=== PATIENT | female | born 1945 | race Caucasian/White ===

== ENCOUNTER 2019-09-01 10:01 | Inpatient (IN) ==
[2019-09-01 10:34] LABS: Basophils % 0.4 % (0.0-0.8); Eosinophils % 0.5 % (0.00-10.9); Hematocrit 31.8 VOL% (35.7-47.0); Hemoglobin 9.6 GM/DL (12.0-16.0); Immature Granulocytes % 0.6 %; Immature Granulocytes Absolute 0.05 #; Lymphocytes # 1.1 10*3/uL (1.4-4.0); Lymphocytes % 12.6 % (21.3-54.2); Mean Corpuscular HGB Conc 30.2 GM/DL (32-36); Mean Corpuscular Volume 75.4 FL (87-102); Mean Platelet Volume 9.1 FL (9.6-12.0); Monocytes % 4.6 % (1.7-12.7); Neutrophils % 81.3 % (38.7-73.9); Platelet Count 256 T/CUMM (130-400); Red Blood Count 4.22 MC/CUMM (3.8-5.5); Red Cell Distribution Width 20.1 % (9.3-17.3); White Blood Count 8.5 T/CUMM (4-12)
[2019-09-01] MEDS: ALBUTEROL 2.5 MG/3 ML NEB RESP TX SCH ×3 (10:49→11:29)
[2019-09-01 11:00] LABS: Alanine Aminotransferase 19 U/L (13-56); Albumin 3.5 G/DL (3.4-5.0); Alkaline Phosphatase 88 U/L (45-117); Aspartate Amino Transferase 32 U/L (0-37); Bilirubin,Total < 0.39 MG/DL (0.2-1.0); Blood Urea Nitrogen 9 MG/DL (7-18); Calcium 8.9 MG/DL (8.5-10.1); Estimated Glom Filtration Rate 67 ML/MIN; Glucose 206 MG/DL (74-106); Osmolality,Calculated 270.4 MOS/KG (273-304); Total Protein 7.2 G/DL (6.4-8.3)
[2019-09-01] MEDS ORDERED: GLUCAGON 1 MG VIAL IM PRN (13:06)
[2019-09-01] MEDS ORDERED: ACETAMINOPHEN 325 MG TABLET PO PRN (13:06)
[2019-09-01] MEDS ORDERED: DEXTROSE 50% 25 GM/50 ML VIAL IV PRN (13:06)
[2019-09-01] MEDS ORDERED: ONDANSETRON 4 MG/2 ML VIAL IV PRN (13:06)
[2019-09-01] MEDS ORDERED: BACLOFEN 10 MG TABLET PO PRN (13:09)
[2019-09-01] MEDS ORDERED: PROCHLORPERAZINE 10 MG TABLET PO PRN (13:09)
[2019-09-01] MEDS: ALBUTEROL/IPRATROPIUM 3 ML NEB RESP TX SCH ×2 (16:15→20:30)
[2019-09-01] MEDS: PANTOPRAZOLE 40 MG TABLET PO SCH (21:35)
[2019-09-01] MEDS: CITALOPRAM 20 MG TABLET PO SCH (21:35)
[2019-09-01] MEDS: SIMVASTATIN 20 MG TABLET PO SCH (21:35)
[2019-09-01] MEDS: ENOXAPARIN 40 MG/0.4 ML SYRINGE SUBCUT SCH (21:35)
[2019-09-01] MEDS: PREGABALIN 75 MG CAPSULE PO SCH (21:35)
[2019-09-01] MEDS: THEOPHYLLINE ER (24 HR) 300 MG CAPSULE PO SCH (21:35)
[2019-09-01] MEDS: FLUTICASONE/SALMETEROL 250-50 DISKUS 14 DOSE INH SCH (21:36)
[2019-09-01] MEDS: PRAMIPEXOLE 0.25 MG TABLET PO SCH (21:53)
[2019-09-01] MEDS: MORPHINE ER 30 MG TABLET PO SCH (21:53)
[2019-09-02] MEDS: ALBUTEROL/IPRATROPIUM 3 ML NEB RESP TX SCH ×6 (03:52→19:40)
[2019-09-02 05:06] LABS: Basophils % 0.4 % (0.0-0.8); Eosinophils # 0.1 10*3/uL (0.0-0.87); Eosinophils % 0.9 % (0.00-10.9); Hemoglobin 9.1 GM/DL (12.0-16.0); Immature Granulocytes % 0.3 %; Immature Granulocytes Absolute 0.02 #; Lymphocytes # 1.8 10*3/uL (1.4-4.0); Lymphocytes % 22.4 % (21.3-54.2); Mean Corpuscular HGB Conc 30.3 GM/DL (32-36); Mean Corpuscular Volume 74.4 FL (87-102); Mean Platelet Volume 8.5 FL (9.6-12.0); Monocytes % 9.9 % (1.7-12.7); Neutrophils % 66.1 % (38.7-73.9); Platelet Count 233 T/CUMM (130-400); Red Blood Count 4.03 MC/CUMM (3.8-5.5); Red Cell Distribution Width 20.4 % (9.3-17.3); White Blood Count 7.9 T/CUMM (4-12)
[2019-09-02 05:29] LABS: Calcium 9.2 MG/DL (8.5-10.1)
[2019-09-02] MEDS: LINACLOTIDE 145 MCG CAPSULE PO SCH (09:53)
[2019-09-02] MEDS: CITALOPRAM 20 MG TABLET PO SCH ×2 (09:53→21:15)
[2019-09-02] MEDS: PREGABALIN 75 MG CAPSULE PO SCH ×2 (09:53→21:15)
[2019-09-02] MEDS: CLOPIDOGREL 75 MG TABLET PO SCH (09:53)
[2019-09-02] MEDS: THEOPHYLLINE ER (24 HR) 300 MG CAPSULE PO SCH ×2 (09:53→21:15)
[2019-09-02] MEDS: PANTOPRAZOLE 40 MG TABLET PO SCH ×2 (09:53→21:15)
[2019-09-02] MEDS: MORPHINE ER 30 MG TABLET PO SCH ×2 (09:54→21:14)
[2019-09-02] MEDS: LIDOCAINE 5% PATCH TRANSDERM SCH (09:54)
[2019-09-02] MEDS: FLUTICASONE 50 MCG NASAL SPRAY 16 GM BOTTLE BOTH NARES SCH ×2 (09:55→10:20)
[2019-09-02] MEDS: FLUTICASONE/SALMETEROL 250-50 DISKUS 14 DOSE INH SCH ×2 (09:55→21:15)
[2019-09-02] MEDS: oxyCODONE/ACETAMINOPHEN 5-325 MG TABLET PO PRN ×3 (11:18→23:06)
[2019-09-02] MEDS: PRAMIPEXOLE 0.25 MG TABLET PO SCH (21:14)
[2019-09-02] MEDS: SIMVASTATIN 20 MG TABLET PO SCH (21:14)
[2019-09-02] MEDS: ENOXAPARIN 40 MG/0.4 ML SYRINGE SUBCUT SCH (21:16)
[2019-09-03] MEDS: ALBUTEROL/IPRATROPIUM 3 ML NEB RESP TX SCH ×4 (03:14→19:49)
[2019-09-03 04:32] LABS: Basophils # 0.1 10*3/uL (0.0-0.2); Basophils % 0.6 % (0.0-0.8); Eosinophils # 0.1 10*3/uL (0.0-0.87); Hemoglobin 9.3 GM/DL (12.0-16.0); Immature Granulocytes % 0.4 %; Immature Granulocytes Absolute 0.04 #; Lymphocytes % 22.1 % (21.3-54.2); Mean Corpuscular Volume 76.2 FL (87-102); Mean Platelet Volume 8.4 FL (9.6-12.0); Monocytes % 9.7 % (1.7-12.7); Neutrophils % 66.2 % (38.7-73.9); Platelet Count 254 T/CUMM (130-400); Red Blood Count 4.07 MC/CUMM (3.8-5.5); Red Cell Distribution Width 20.3 % (9.3-17.3)
[2019-09-03 04:54] LABS: Osmolality,Calculated 267.1 MOS/KG (273-304)
[2019-09-03] MEDS: PANTOPRAZOLE 40 MG TABLET PO SCH ×2 (09:22→20:24)
[2019-09-03] MEDS: CLOPIDOGREL 75 MG TABLET PO SCH (09:22)
[2019-09-03] MEDS: PREGABALIN 75 MG CAPSULE PO SCH ×2 (09:23→20:23)
[2019-09-03] MEDS: THEOPHYLLINE ER (24 HR) 300 MG CAPSULE PO SCH ×2 (09:23→20:24)
[2019-09-03] MEDS: MORPHINE ER 30 MG TABLET PO SCH ×2 (09:23→20:23)
[2019-09-03] MEDS: CITALOPRAM 20 MG TABLET PO SCH ×2 (09:23→20:24)
[2019-09-03] MEDS: FLUTICASONE 50 MCG NASAL SPRAY 16 GM BOTTLE BOTH NARES SCH (09:23)
[2019-09-03] MEDS: LINACLOTIDE 145 MCG CAPSULE PO SCH (09:24)
[2019-09-03] MEDS: FLUTICASONE/SALMETEROL 250-50 DISKUS 14 DOSE INH SCH ×2 (09:24→20:24)
[2019-09-03] MEDS: oxyCODONE/ACETAMINOPHEN 5-325 MG TABLET PO PRN ×2 (11:36→17:41)
[2019-09-03] MEDS: LIDOCAINE 5% PATCH TRANSDERM SCH (11:36)
[2019-09-03] MEDS ORDERED: ALPRAZolam 0.25 MG TABLET PO PRN (13:58)
[2019-09-03] MEDS: methylPREDNISolone SOD SUC 40 MG/1 ML VIAL IV SCH (14:35)
[2019-09-03] MEDS: ENOXAPARIN 40 MG/0.4 ML SYRINGE SUBCUT SCH (20:23)
[2019-09-03] MEDS: SIMVASTATIN 20 MG TABLET PO SCH (20:24)
[2019-09-03] MEDS: PRAMIPEXOLE 0.25 MG TABLET PO SCH (20:24)
[2019-09-04] MEDS: ALBUTEROL/IPRATROPIUM 3 ML NEB RESP TX SCH ×4 (00:55→19:54)
[2019-09-04] MEDS: methylPREDNISolone SOD SUC 40 MG/1 ML VIAL IV SCH ×3 (01:53→23:56)
[2019-09-04] MEDS: oxyCODONE/ACETAMINOPHEN 5-325 MG TABLET PO PRN ×3 (01:57→23:56)
[2019-09-04 05:08] LABS: Basophils % 0.1 % (0.0-0.8); Hemoglobin 8.7 GM/DL (12.0-16.0); Immature Granulocytes % 0.6 %; Immature Granulocytes Absolute 0.04 #; Lymphocytes # 0.5 10*3/uL (1.4-4.0); Lymphocytes % 7.4 % (21.3-54.2); Mean Corpuscular HGB Conc 31.1 GM/DL (32-36); Mean Corpuscular Volume 73.3 FL (87-102); Mean Platelet Volume 8.9 FL (9.6-12.0); Monocytes % 1.8 % (1.7-12.7); Neutrophils % 90.1 % (38.7-73.9); Platelet Count 231 T/CUMM (130-400); Red Blood Count 3.82 MC/CUMM (3.8-5.5); Red Cell Distribution Width 19.9 % (9.3-17.3); White Blood Count 6.8 T/CUMM (4-12)
[2019-09-04 05:21] LABS: Calcium 9.1 MG/DL (8.5-10.1); Osmolality,Calculated 270.2 MOS/KG (273-304)
[2019-09-04] MEDS: MORPHINE ER 30 MG TABLET PO SCH ×2 (08:48→20:16)
[2019-09-04] MEDS: PREGABALIN 75 MG CAPSULE PO SCH ×2 (08:48→20:16)
[2019-09-04] MEDS: THEOPHYLLINE ER (24 HR) 300 MG CAPSULE PO SCH ×2 (08:48→20:16)
[2019-09-04] MEDS: CLOPIDOGREL 75 MG TABLET PO SCH (08:48)
[2019-09-04] MEDS: CITALOPRAM 20 MG TABLET PO SCH (08:48)
[2019-09-04] MEDS: FLUTICASONE/SALMETEROL 250-50 DISKUS 14 DOSE INH SCH ×2 (08:49→20:16)
[2019-09-04] MEDS: FLUTICASONE 50 MCG NASAL SPRAY 16 GM BOTTLE BOTH NARES SCH (08:49)
[2019-09-04] MEDS: PANTOPRAZOLE 40 MG TABLET PO SCH ×2 (08:50→20:16)
[2019-09-04] MEDS: LIDOCAINE 5% PATCH TRANSDERM SCH (08:51)
[2019-09-04] MEDS: ALPRAZolam 0.25 MG TABLET PO SCH ×3 (11:39→20:16)
[2019-09-04] MEDS: LINACLOTIDE 145 MCG CAPSULE PO SCH (12:42)
[2019-09-04] MEDS ORDERED: LEVOFLOXACIN INJ 500 MG in PREMIX 1 EACH IV SCH (16:00)
[2019-09-04] MEDS: BUDESONIDE 0.5 MG/2 ML NEB RESP TX SCH (19:54)
[2019-09-04] MEDS: PRAMIPEXOLE 0.25 MG TABLET PO SCH (20:16)
[2019-09-04] MEDS: SIMVASTATIN 20 MG TABLET PO SCH (20:16)
[2019-09-04] MEDS: ENOXAPARIN 40 MG/0.4 ML SYRINGE SUBCUT SCH (20:16)
[2019-09-05] MEDS: ALBUTEROL/IPRATROPIUM 3 ML NEB RESP TX SCH ×2 (01:00→07:24)
[2019-09-05 05:56] LABS: Basophils % 0.1 % (0.0-0.8); Hematocrit 29.1 VOL% (35.7-47.0); Hemoglobin 8.7 GM/DL (12.0-16.0); Immature Granulocytes % 0.8 %; Immature Granulocytes Absolute 0.06 #; Lymphocytes # 0.6 10*3/uL (1.4-4.0); Lymphocytes % 7.4 % (21.3-54.2); Mean Corpuscular HGB Conc 29.9 GM/DL (32-36); Mean Corpuscular Volume 76.2 FL (87-102); Mean Platelet Volume 8.8 FL (9.6-12.0); Monocytes % 2.1 % (1.7-12.7); Neutrophils % 89.6 % (38.7-73.9); Platelet Count 255 T/CUMM (130-400); Red Blood Count 3.82 MC/CUMM (3.8-5.5); White Blood Count 7.8 T/CUMM (4-12)
[2019-09-05 06:07] LABS: Alanine Aminotransferase 27 U/L (13-56); Albumin 3.3 G/DL (3.4-5.0); Alkaline Phosphatase 80 U/L (45-117); Aspartate Amino Transferase 42 U/L (0-37); Bilirubin,Total < 0.39 MG/DL (0.2-1.0); Blood Urea Nitrogen 16 MG/DL (7-18); Calcium 9.3 MG/DL (8.5-10.1); Estimated Glom Filtration Rate 59 ML/MIN; Glucose 133 MG/DL (74-106); Osmolality,Calculated 272.1 MOS/KG (273-304); Total Protein 7.2 G/DL (6.4-8.3)
[2019-09-05] MEDS: BUDESONIDE 0.5 MG/2 ML NEB RESP TX SCH (07:25)
[2019-09-05] MEDS ORDERED: ALBUTEROL/IPRATROPIUM 3 ML NEB RESP TX ONE (09:03)
[2019-09-05] MEDS: PREGABALIN 75 MG CAPSULE PO SCH (09:05)
[2019-09-05] MEDS: CLOPIDOGREL 75 MG TABLET PO SCH (09:06)
[2019-09-05] MEDS: PANTOPRAZOLE 40 MG TABLET PO SCH (09:06)
[2019-09-05] MEDS: THEOPHYLLINE ER (24 HR) 300 MG CAPSULE PO SCH (09:06)
[2019-09-05] MEDS: MORPHINE ER 30 MG TABLET PO SCH (09:06)
[2019-09-05] MEDS: methylPREDNISolone SOD SUC 40 MG/1 ML VIAL IV SCH (09:07)
[2019-09-05] MEDS: LINACLOTIDE 145 MCG CAPSULE PO SCH (09:07)
[2019-09-05] MEDS: LIDOCAINE 5% PATCH TRANSDERM SCH (09:08)
[2019-09-05] MEDS: ALPRAZolam 0.25 MG TABLET PO SCH (09:08)
[2019-09-05] MEDS: FLUTICASONE 50 MCG NASAL SPRAY 16 GM BOTTLE BOTH NARES SCH (09:09)
[2019-09-05] MEDS: FLUTICASONE/SALMETEROL 250-50 DISKUS 14 DOSE INH SCH (09:09)
[2019-09-05 10:11] VITALS: BP 170/77
== END 2019-09-05 12:10 | disposition home health service (06) | DRG 191 ==
LOC: EDBD → EDUNIT# → N.ED 10:01 → N.EDINP 10:01 → SUATTDRO 13:06 → N.TELEN 14:29
PROVIDERS: ADMIT Internal Medicine Geriatric Medicine; ATTEND Internal Medicine

== ENCOUNTER 2019-10-16 16:36 | Inpatient (IN) ==
[2019-10-16] MEDS ORDERED: methylPREDNISolone SOD SUC 125 MG/2 ML VIAL IV STA (17:09)
[2019-10-16] MEDS ORDERED: ALBUTEROL/IPRATROPIUM 3 ML NEB RESP TX STA (17:09)
[2019-10-16 17:38] LABS: Basophils % 0.3 % (0.0-0.8); Eosinophils % 0.3 % (0.00-10.9); Hematocrit 33.6 VOL% (35.7-47.0); Hemoglobin 10.6 GM/DL (12.0-16.0); Immature Granulocytes % 0.2 %; Immature Granulocytes Absolute 0.03 #; Lymphocytes # 1.5 10*3/uL (1.4-4.0); Lymphocytes % 12.1 % (21.3-54.2); Mean Corpuscular HGB Conc 31.5 GM/DL (32-36); Mean Platelet Volume 8.6 FL (9.6-12.0); Monocytes % 8.1 % (1.7-12.7); Platelet Count 298 T/CUMM (130-400); Red Blood Count 4.48 MC/CUMM (3.8-5.5); Red Cell Distribution Width 18.4 % (9.3-17.3); White Blood Count 12.3 T/CUMM (4-12)
[2019-10-16 17:57] LABS: Albumin 3.2 G/DL (3.4-5.0); Bilirubin,Total 0.4 MG/DL (0.2-1.0); Calcium 9.8 MG/DL (8.5-10.1); Total Protein 7.9 G/DL (6.4-8.3)
[2019-10-16] MEDS ORDERED: LEVOFLOXACIN 750 MG TABLET PO STA (18:15)
[2019-10-16] MEDS ORDERED: GLUCAGON 1 MG VIAL IM PRN (19:08)
[2019-10-16] MEDS ORDERED: DEXTROSE 10% 250 ML BAG IV PRN (19:08)
[2019-10-16] MEDS: oxyCODONE/ACETAMINOPHEN 5-325 MG TABLET PO SCH (22:13)
[2019-10-16] MEDS: PREGABALIN 75 MG CAPSULE PO SCH (22:13)
[2019-10-16] MEDS: THEOPHYLLINE ER (24 HR) 300 MG CAPSULE PO SCH (22:15)
[2019-10-16] MEDS: SIMVASTATIN 20 MG TABLET PO SCH (22:15)
[2019-10-16] MEDS: PANTOPRAZOLE 40 MG TABLET PO SCH (22:15)
[2019-10-16] MEDS: MORPHINE ER 30 MG TABLET PO SCH (22:15)
[2019-10-16] MEDS: CITALOPRAM 20 MG TABLET PO SCH (22:16)
[2019-10-16] MEDS: ENOXAPARIN 40 MG/0.4 ML SYRINGE SUBCUT SCH (22:20)
[2019-10-16] MEDS: PRAMIPEXOLE 0.25 MG TABLET PO SCH (22:20)
[2019-10-16] MEDS: ALBUTEROL/IPRATROPIUM 3 ML NEB RESP TX PRN (22:30)
[2019-10-17] MEDS: ALBUTEROL/IPRATROPIUM 3 ML NEB RESP TX PRN ×2 (06:20→19:28)
[2019-10-17 06:32] LABS: Basophils % 0.3 % (0.0-0.8); Hematocrit 33.9 VOL% (35.7-47.0); Hemoglobin 10.6 GM/DL (12.0-16.0); Immature Granulocytes % 0.4 %; Immature Granulocytes Absolute 0.04 #; Lymphocytes # 1.2 10*3/uL (1.4-4.0); Lymphocytes % 11.2 % (21.3-54.2); Mean Corpuscular HGB Conc 31.3 GM/DL (32-36); Mean Corpuscular Volume 74.7 FL (87-102); Mean Platelet Volume 8.7 FL (9.6-12.0); Monocytes % 2.5 % (1.7-12.7); Neutrophils % 85.6 % (38.7-73.9); Platelet Count 308 T/CUMM (130-400); Red Blood Count 4.54 MC/CUMM (3.8-5.5); Red Cell Distribution Width 18.3 % (9.3-17.3); White Blood Count 10.3 T/CUMM (4-12)
[2019-10-17 06:55] LABS: Calcium 9.3 MG/DL (8.5-10.1)
[2019-10-17] MEDS: CLOPIDOGREL 75 MG TABLET PO SCH (08:19)
[2019-10-17] MEDS: MORPHINE ER 30 MG TABLET PO SCH ×2 (08:19→21:36)
[2019-10-17] MEDS: THEOPHYLLINE ER (24 HR) 300 MG CAPSULE PO SCH ×2 (08:19→21:35)
[2019-10-17] MEDS: PREGABALIN 75 MG CAPSULE PO SCH ×2 (08:19→21:35)
[2019-10-17] MEDS: PANTOPRAZOLE 40 MG TABLET PO SCH ×2 (08:19→21:36)
[2019-10-17] MEDS: LIDOCAINE 5% PATCH TRANSDERM SCH (08:20)
[2019-10-17] MEDS: CITALOPRAM 20 MG TABLET PO SCH ×2 (08:20→21:36)
[2019-10-17] MEDS: LINACLOTIDE 145 MCG CAPSULE PO SCH (08:20)
[2019-10-17] MEDS: oxyCODONE/ACETAMINOPHEN 5-325 MG TABLET PO SCH ×3 (08:20→21:35)
[2019-10-17] MEDS: methylPREDNISolone SOD SUC 40 MG/1 ML VIAL IV SCH ×2 (08:20→21:36)
[2019-10-17 15:03] LABS: Basophils % 0.2 % (0.0-0.8); Hematocrit 35.7 VOL% (35.7-47.0); Hemoglobin 10.8 GM/DL (12.0-16.0); Immature Granulocytes % 0.8 %; Lymphocytes # 0.8 10*3/uL (1.4-4.0); Lymphocytes % 6.3 % (21.3-54.2); Mean Corpuscular HGB Conc 30.3 GM/DL (32-36); Mean Corpuscular Volume 77.9 FL (87-102); Mean Platelet Volume 8.5 FL (9.6-12.0); Monocytes % 2.2 % (1.7-12.7); Neutrophils % 90.5 % (38.7-73.9); Platelet Count 326 T/CUMM (130-400); Red Blood Count 4.58 MC/CUMM (3.8-5.5); Red Cell Distribution Width 18.4 % (9.3-17.3); White Blood Count 12.9 T/CUMM (4-12)
[2019-10-17 15:24] LABS: Calcium 9.5 MG/DL (8.5-10.1); Osmolality,Calculated 277.1 MOS/KG (273-304)
[2019-10-17] MEDS: LEVOFLOXACIN INJ 500 MG in PREMIX 1 EACH IV SCH (18:37)
[2019-10-17] MEDS: ARFORMOTEROL 15 MCG/2 ML NEB RESP TX SCH (19:28)
[2019-10-17] MEDS: PRAMIPEXOLE 0.25 MG TABLET PO SCH (21:35)
[2019-10-17] MEDS: ENOXAPARIN 40 MG/0.4 ML SYRINGE SUBCUT SCH (21:36)
[2019-10-17] MEDS: SIMVASTATIN 20 MG TABLET PO SCH (21:36)
[2019-10-18] MEDS: ARFORMOTEROL 15 MCG/2 ML NEB RESP TX SCH ×2 (07:24→19:37)
[2019-10-18] MEDS ORDERED: MIDAZOLAM 10 MG/2 ML VIAL ONE (07:37)
[2019-10-18] MEDS ORDERED: PROMETHAZINE 25 MG/1 ML VIAL IM ONE (08:00)
[2019-10-18] MEDS ORDERED: MEPERIDINE 50 MG/1 ML VIAL IM ONE (08:00)
[2019-10-18] MEDS ORDERED: LIDOCAINE 1% 20 ML VIAL MISC INJ ONE (08:30)
[2019-10-18] MEDS ORDERED: LIDOCAINE 2% VISCOUS 100 ML BOTTLE SWISH/SPIT ONE (08:30)
[2019-10-18] MEDS ORDERED: LIDOCAINE 2% 20 ML VIAL RESP TX ONE (08:30)
[2019-10-18] MEDS ORDERED: MIDAZOLAM 2 MG/2 ML VIAL IV ONE (08:30)
[2019-10-18] MEDS: MORPHINE ER 30 MG TABLET PO SCH ×2 (10:55→21:10)
[2019-10-18] MEDS: THEOPHYLLINE ER (24 HR) 300 MG CAPSULE PO SCH ×2 (10:55→21:10)
[2019-10-18] MEDS: methylPREDNISolone SOD SUC 40 MG/1 ML VIAL IV SCH ×2 (10:55→21:11)
[2019-10-18] MEDS: oxyCODONE/ACETAMINOPHEN 5-325 MG TABLET PO SCH ×3 (10:55→21:10)
[2019-10-18] MEDS: PANTOPRAZOLE 40 MG TABLET PO SCH ×2 (10:55→21:10)
[2019-10-18] MEDS: LIDOCAINE 5% PATCH TRANSDERM SCH ×2 (10:56→19:13)
[2019-10-18] MEDS: PREGABALIN 75 MG CAPSULE PO SCH ×2 (10:56→21:10)
[2019-10-18] MEDS: CITALOPRAM 20 MG TABLET PO SCH ×2 (10:56→21:10)
[2019-10-18] MEDS: CLOPIDOGREL 75 MG TABLET PO SCH (10:56)
[2019-10-18] MEDS: LINACLOTIDE 145 MCG CAPSULE PO SCH (10:56)
[2019-10-18] MEDS: ALBUTEROL/IPRATROPIUM 3 ML NEB RESP TX PRN (17:17)
[2019-10-18] MEDS: LEVOFLOXACIN INJ 500 MG in PREMIX 1 EACH IV SCH (18:40)
[2019-10-18] MEDS: SIMVASTATIN 20 MG TABLET PO SCH (21:11)
[2019-10-18] MEDS: ENOXAPARIN 40 MG/0.4 ML SYRINGE SUBCUT SCH (21:11)
[2019-10-18] MEDS: PRAMIPEXOLE 0.25 MG TABLET PO SCH (21:18)
[2019-10-19] MEDS: oxyCODONE IR 5 MG TABLET PO PRN ×2 (03:44→08:00)
[2019-10-19 05:31] LABS: Basophils % 0.1 % (0.0-0.8); Hemoglobin 9.7 GM/DL (12.0-16.0); Immature Granulocytes % 0.9 %; Immature Granulocytes Absolute 0.11 #; Lymphocytes % 7.7 % (21.3-54.2); Mean Corpuscular HGB Conc 30.3 GM/DL (32-36); Mean Corpuscular Volume 77.1 FL (87-102); Mean Platelet Volume 8.8 FL (9.6-12.0); Monocytes % 3.4 % (1.7-12.7); Neutrophils % 87.9 % (38.7-73.9); Platelet Count 262 T/CUMM (130-400); Red Blood Count 4.15 MC/CUMM (3.8-5.5); Red Cell Distribution Width 18.1 % (9.3-17.3); White Blood Count 12.8 T/CUMM (4-12)
[2019-10-19 05:56] LABS: Calcium 9.2 MG/DL (8.5-10.1); Osmolality,Calculated 271.4 MOS/KG (273-304)
[2019-10-19] MEDS: ARFORMOTEROL 15 MCG/2 ML NEB RESP TX SCH (07:29)
[2019-10-19] MEDS: CLOPIDOGREL 75 MG TABLET PO SCH (09:26)
[2019-10-19] MEDS: LINACLOTIDE 145 MCG CAPSULE PO SCH (09:26)
[2019-10-19] MEDS: MORPHINE ER 30 MG TABLET PO SCH (09:27)
[2019-10-19] MEDS: methylPREDNISolone SOD SUC 40 MG/1 ML VIAL IV SCH (09:27)
[2019-10-19] MEDS: PREGABALIN 75 MG CAPSULE PO SCH (09:27)
[2019-10-19] MEDS: CITALOPRAM 20 MG TABLET PO SCH (09:27)
[2019-10-19] MEDS: THEOPHYLLINE ER (24 HR) 300 MG CAPSULE PO SCH (09:27)
[2019-10-19] MEDS: oxyCODONE/ACETAMINOPHEN 5-325 MG TABLET PO SCH (09:27)
[2019-10-19] MEDS: PANTOPRAZOLE 40 MG TABLET PO SCH (09:36)
[2019-10-19] MEDS: LIDOCAINE 5% PATCH TRANSDERM SCH (09:36)
[2019-10-19 12:20] VITALS: BP 155/89
== END 2019-10-19 14:07 | disposition home or self-care (01) | DRG 178 ==
LOC: EDBD → EDUNIT# → N.ED 16:36 → N.EDINP 19:08 → N.TELEN 19:53
PROVIDERS: ADMIT Internal Medicine; ATTEND Internal Medicine

== ENCOUNTER 2020-04-09 10:34 | Inpatient (IN) ==
[2020-04-09] MEDS ORDERED: methylPREDNISolone SOD SUC 125 MG/2 ML VIAL IV STA (10:36)
[2020-04-09] MEDS ORDERED: LORazepam 2 MG/1 ML VIAL ONE (10:45)
[2020-04-09] MEDS ORDERED: LORazepam 2 MG/1 ML VIAL IV STA (10:46)
[2020-04-09] MEDS ORDERED: ALBUTEROL NEB SOLN 5 MG/ML 20 ML/BOTTLE CONT NEB SCH (11:00)
[2020-04-09 11:20] LABS: Basophils # 0.1 10*3/uL (0.0-0.2); Basophils % 0.6 % (0.0-0.8); Eosinophils # 0.1 10*3/uL (0.0-0.87); Eosinophils % 0.8 % (0.00-10.9); Hematocrit 33.2 VOL% (35.7-47.0); Hemoglobin 10.1 GM/DL (12.0-16.0); Immature Granulocytes % 0.6 %; Immature Granulocytes Absolute 0.06 #; Lymphocytes # 2.3 10*3/uL (1.4-4.0); Lymphocytes % 20.9 % (21.3-54.2); Mean Corpuscular HGB Conc 30.4 GM/DL (32-36); Mean Platelet Volume 8.8 FL (9.6-12.0); Monocytes % 8.1 % (1.7-12.7); Platelet Count 357 T/CUMM (130-400); Red Blood Count 4.74 MC/CUMM (3.8-5.5); Red Cell Distribution Width 19.1 % (9.3-17.3); White Blood Count 10.8 T/CUMM (4-12)
[2020-04-09 11:31] LABS: ABG Base Excess 2.8 MMOL/L (-2.5-2.5); ABG HCO3 29.8 MMOL/L (20-26); ABG Oxygen Saturation 98.7 % (95-100); ABG PCO2 58.8 MM HG (35-48); ABG PH 7.322 (7.35-7.45); ABG PO2 151.7 MM HG (80-95); ABG TCO2 31.6 MMOL/L (23-27)
[2020-04-09 11:32] LABS: Alanine Aminotransferase < 9 U/L (13-56); Albumin 3.2 G/DL (3.4-5.0); Alkaline Phosphatase 116 U/L (45-117); Aspartate Amino Transferase 15 U/L (0-37); Bilirubin,Total < 0.39 MG/DL (0.2-1.0); Blood Urea Nitrogen 11 MG/DL (7-18); Calcium 8.9 MG/DL (8.5-10.1); Estimated Glom Filtration Rate 68 ML/MIN; Glucose 110 MG/DL (74-106); Osmolality,Calculated 272.8 MOS/KG (273-304); Total Protein 7.4 G/DL (6.4-8.3)
[2020-04-09] MEDS ORDERED: ALBUTEROL 2.5 MG/3 ML NEB RESP TX PRN (13:00)
[2020-04-09] MEDS ORDERED: ONDANSETRON 4 MG/2 ML VIAL IV PRN (13:00)
[2020-04-09] MEDS ORDERED: PANTOPRAZOLE 40 MG TABLET PO SCH (13:30)
[2020-04-09 14:33] LABS: ABG Base Excess 5.8 MMOL/L (-2.5-2.5); ABG HCO3 29.4 MMOL/L (20-26); ABG Oxygen Saturation 81.4 % (95-100); ABG PO2 51.4 MM HG (80-95); ABG TCO2 30.8 MMOL/L (23-27)
[2020-04-09] MEDS ORDERED: ETOMIDATE 20 MG/10 ML VIAL IV ONE (16:00)
[2020-04-09] MEDS ORDERED: ROCURONIUM 100 MG/10 ML VIAL IV ONE (16:01)
[2020-04-09] MEDS ORDERED: methylPREDNISolone SOD SUC 125 MG/2 ML VIAL IV SCH (16:30)
[2020-04-09 17:48] LABS: ABG PCO2 57.2 MM HG (35-48); ABG PH 7.353 (7.35-7.45); ABG TCO2 29.3 MMOL/L (23-27); Allen Test Positive; Pt O2 Delivery Device Ventilator
[2020-04-09] MEDS: ENOXAPARIN 40 MG/0.4 ML SYRINGE SUBCUT SCH (18:32)
[2020-04-09] MEDS: AZITHROMYCIN INJ 500 MG in SODIUM CHLORIDE 0.9% 250 ML IV SCH (18:33)
[2020-04-09] MEDS: ALBUTEROL/IPRATROPIUM 3 ML NEB RESP TX SCH ×2 (19:16→23:35)
[2020-04-09] MEDS ORDERED: fentaNYL 100 MCG/2 ML VIAL IV ONE (19:54)
[2020-04-09] MEDS: fentaNYL INJ 1,250 MCG in SODIUM CHLORIDE 0.9% 225 ML IV PRN (20:25)
[2020-04-09] MEDS: methylPREDNISolone SOD SUC 125 MG/2 ML VIAL IV SCH (20:28)
[2020-04-10 03:42] LABS: Basophils % 0.1 % (0.0-0.8); Hematocrit 29.9 VOL% (35.7-47.0); Hemoglobin 9.2 GM/DL (12.0-16.0); Immature Granulocytes % 0.9 %; Immature Granulocytes Absolute 0.09 #; Lymphocytes # 0.5 10*3/uL (1.4-4.0); Lymphocytes % 4.8 % (21.3-54.2); Mean Corpuscular HGB Conc 30.8 GM/DL (32-36); Mean Corpuscular Volume 69.4 FL (87-102); Mean Platelet Volume 8.5 FL (9.6-12.0); Monocytes % 4.7 % (1.7-12.7); Neutrophils % 89.5 % (38.7-73.9); Platelet Count 255 T/CUMM (130-400); Red Blood Count 4.31 MC/CUMM (3.8-5.5); Red Cell Distribution Width 18.6 % (9.3-17.3); White Blood Count 9.6 T/CUMM (4-12)
[2020-04-10 04:08] LABS: Calcium 9.1 MG/DL (8.5-10.1); Osmolality,Calculated 275.8 MOS/KG (273-304)
[2020-04-10 04:25] LABS: ABG Base Excess 4.8 MMOL/L (-2.5-2.5); ABG HCO3 28.8 MMOL/L (20-26); ABG Oxygen Saturation 98.2 % (95-100); ABG PCO2 44.5 MM HG (35-48); ABG PH 7.432 (7.35-7.45); ABG TCO2 27.4 MMOL/L (23-27); Allen Test Positive; Pt O2 Delivery Device Ventilator
[2020-04-10] MEDS: ALBUTEROL/IPRATROPIUM 3 ML NEB RESP TX SCH ×6 (04:25→22:55)
[2020-04-10 04:26] LABS: Band Neutrophils 1 % (0-10); Hypochromasia 1+; Lymphocytes 5 % (20-55); Microcytosis 1+; Platelet Estimate Adequate; Segmented Neutrophils 92 % (50-85); Total Cells Counted 100
[2020-04-10] MEDS: PANTOPRAZOLE 40 MG VIAL IV SCH (08:07)
[2020-04-10] MEDS: methylPREDNISolone SOD SUC 125 MG/2 ML VIAL IV SCH ×2 (08:11→20:17)
[2020-04-10] MEDS: fentaNYL INJ 1,250 MCG in SODIUM CHLORIDE 0.9% 225 ML IV PRN ×2 (09:24→19:40)
[2020-04-10] MEDS ORDERED: LEVOFLOXACIN INJ 750 MG in PREMIX 1 EACH IV SCH (09:30)
[2020-04-10] MEDS: AZTREONAM 2,000 MG in SYRINGE 1 EACH IV SCH ×2 (11:22→17:33)
[2020-04-10] MEDS: INSULIN LISPRO 100 UNIT/ML SUBCUT SCH ×2 (17:16→23:49)
[2020-04-10] MEDS: ENOXAPARIN 40 MG/0.4 ML SYRINGE SUBCUT SCH (17:32)
[2020-04-10] MEDS: AZITHROMYCIN INJ 500 MG in SODIUM CHLORIDE 0.9% 250 ML IV SCH (17:32)
[2020-04-11] MEDS: AZTREONAM 2,000 MG in SYRINGE 1 EACH IV SCH ×3 (02:30→19:40)
[2020-04-11] MEDS: ALBUTEROL/IPRATROPIUM 3 ML NEB RESP TX SCH ×6 (03:00→23:28)
[2020-04-11 04:18] LABS: ABG Base Excess 5.6 MMOL/L (-2.5-2.5); ABG HCO3 29.5 MMOL/L (20-26); ABG Oxygen Saturation 96.1 % (95-100); ABG PCO2 53.8 MM HG (35-48); ABG PO2 87.8 MM HG (80-95); ABG TCO2 29.5 MMOL/L (23-27); Allen Test Positive; Pt O2 Delivery Device Ventilator
[2020-04-11 05:09] LABS: Basophils % 0.1 % (0.0-0.8); Hematocrit 24.5 VOL% (35.7-47.0); Hemoglobin 7.8 GM/DL (12.0-16.0); Immature Granulocytes % 0.6 %; Immature Granulocytes Absolute 0.08 #; Lymphocytes # 0.4 10*3/uL (1.4-4.0); Mean Corpuscular HGB Conc 31.8 GM/DL (32-36); Mean Corpuscular Volume 69.8 FL (87-102); Mean Platelet Volume 9.1 FL (9.6-12.0); Monocytes % 3.5 % (1.7-12.7); Neutrophils % 92.8 % (38.7-73.9); Platelet Count 242 T/CUMM (130-400); Red Blood Count 3.51 MC/CUMM (3.8-5.5); Red Cell Distribution Width 18.8 % (9.3-17.3); White Blood Count 12.8 T/CUMM (4-12)
[2020-04-11 05:29] LABS: Calcium 7.3 MG/DL (8.5-10.1); Osmolality,Calculated 274.2 MOS/KG (273-304)
[2020-04-11 05:35] LABS: Band Neutrophils 9 % (0-10); Lymphocytes 4 % (20-55); Segmented Neutrophils 86 % (50-85); Total Cells Counted 100
[2020-04-11 05:36] LABS: Platelet Estimate Normal; Tear Drop Cells Few
[2020-04-11 05:37] LABS: Target Cells Few
[2020-04-11 05:38] LABS: Hypochromasia 1+
[2020-04-11] MEDS: fentaNYL INJ 1,250 MCG in SODIUM CHLORIDE 0.9% 225 ML IV PRN (06:08)
[2020-04-11] MEDS: INSULIN LISPRO 100 UNIT/ML SUBCUT SCH ×3 (06:10→18:05)
[2020-04-11] MEDS: methylPREDNISolone SOD SUC 125 MG/2 ML VIAL IV SCH ×2 (09:40→20:29)
[2020-04-11] MEDS: PANTOPRAZOLE 40 MG VIAL IV SCH (09:42)
[2020-04-11] MEDS: ALUMINUM/MAGNES/SIMETH MAX STR 30 ML UDCUP PO PRN (15:59)
[2020-04-11] MEDS: ALPRAZolam 0.25 MG TABLET PO PRN (15:59)
[2020-04-11] MEDS: ENOXAPARIN 40 MG/0.4 ML SYRINGE SUBCUT SCH (17:34)
[2020-04-11] MEDS: AZITHROMYCIN INJ 500 MG in SODIUM CHLORIDE 0.9% 250 ML IV SCH (17:34)
[2020-04-11] MEDS: oxyCODONE/ACETAMINOPHEN 5-325 MG TABLET PO PRN (18:13)
[2020-04-11] MEDS: ZALEPLON 5 MG CAPSULE PO PRN (20:30)
[2020-04-11] MEDS ORDERED: PHENOL 1.4% THROAT SPRAY 177 ML BOTTLE PO PRN (21:44)
[2020-04-12] MEDS: ALUMINUM/MAGNES/SIMETH MAX STR 30 ML UDCUP PO PRN ×2 (00:20→08:49)
[2020-04-12] MEDS: AZTREONAM 2,000 MG in SYRINGE 1 EACH IV SCH ×3 (01:40→21:23)
[2020-04-12] MEDS: ALPRAZolam 0.25 MG TABLET PO PRN (02:13)
[2020-04-12] MEDS ORDERED: MORPHINE 4 MG/1 ML VIAL IV ONE (02:26)
[2020-04-12] MEDS: ALBUTEROL/IPRATROPIUM 3 ML NEB RESP TX SCH ×5 (03:24→19:57)
[2020-04-12 04:03] LABS: Basophils % 0.1 % (0.0-0.8); Hematocrit 29.4 VOL% (35.7-47.0); Hemoglobin 8.9 GM/DL (12.0-16.0); Immature Granulocytes % 0.8 %; Immature Granulocytes Absolute 0.11 #; Lymphocytes # 0.5 10*3/uL (1.4-4.0); Lymphocytes % 3.6 % (21.3-54.2); Mean Corpuscular HGB Conc 30.3 GM/DL (32-36); Mean Corpuscular Volume 68.9 FL (87-102); Mean Platelet Volume 8.6 FL (9.6-12.0); Monocytes % 1.7 % (1.7-12.7); Neutrophils % 93.8 % (38.7-73.9); Platelet Count 266 T/CUMM (130-400); Red Blood Count 4.27 MC/CUMM (3.8-5.5); Red Cell Distribution Width 18.9 % (9.3-17.3); White Blood Count 13.8 T/CUMM (4-12)
[2020-04-12 04:21] LABS: Calcium 8.9 MG/DL (8.5-10.1); Osmolality,Calculated 277.8 MOS/KG (273-304)
[2020-04-12 04:28] LABS: Hypochromasia Slight; Lymphocytes 3 % (20-55); Microcytosis 3+; Platelet Estimate Normal; Segmented Neutrophils 97 % (50-85); Total Cells Counted 100
[2020-04-12] MEDS: INSULIN LISPRO 100 UNIT/ML SUBCUT SCH ×4 (05:45→18:32)
[2020-04-12] MEDS: oxyCODONE/ACETAMINOPHEN 5-325 MG TABLET PO PRN ×4 (07:25→20:13)
[2020-04-12] MEDS: PANTOPRAZOLE 40 MG VIAL IV SCH (08:45)
[2020-04-12] MEDS: methylPREDNISolone SOD SUC 125 MG/2 ML VIAL IV SCH ×2 (08:47→20:15)
[2020-04-12] MEDS ORDERED: LACTULOSE 20 GM/30 ML UDCUP PO PRN (12:00)
[2020-04-12] MEDS ORDERED: LACTULOSE 20 GM/30 ML UDCUP PO SCH (14:00)
[2020-04-12] MEDS: ENOXAPARIN 40 MG/0.4 ML SYRINGE SUBCUT SCH (17:38)
[2020-04-12] MEDS: AZITHROMYCIN INJ 500 MG in SODIUM CHLORIDE 0.9% 250 ML IV SCH (20:19)
[2020-04-13] MEDS: ALBUTEROL/IPRATROPIUM 3 ML NEB RESP TX SCH ×6 (00:02→19:52)
[2020-04-13] MEDS: oxyCODONE/ACETAMINOPHEN 5-325 MG TABLET PO PRN ×5 (00:35→20:31)
[2020-04-13] MEDS: ZALEPLON 5 MG CAPSULE PO PRN ×2 (00:41→20:31)
[2020-04-13] MEDS: INSULIN LISPRO 100 UNIT/ML SUBCUT SCH ×4 (00:42→18:22)
[2020-04-13] MEDS: AZTREONAM 2,000 MG in SYRINGE 1 EACH IV SCH ×3 (03:25→17:54)
[2020-04-13 05:51] LABS: Basophils % 0.1 % (0.0-0.8); Hematocrit 29.5 VOL% (35.7-47.0); Hemoglobin 8.9 GM/DL (12.0-16.0); Immature Granulocytes % 0.7 %; Immature Granulocytes Absolute 0.06 #; Lymphocytes # 0.6 10*3/uL (1.4-4.0); Lymphocytes % 6.7 % (21.3-54.2); Mean Corpuscular HGB Conc 30.2 GM/DL (32-36); Mean Corpuscular Volume 68.6 FL (87-102); Mean Platelet Volume 8.8 FL (9.6-12.0); Neutrophils % 89.5 % (38.7-73.9); Platelet Count 264 T/CUMM (130-400); Red Cell Distribution Width 18.8 % (9.3-17.3); White Blood Count 8.4 T/CUMM (4-12)
[2020-04-13 06:15] LABS: Calcium 9.3 MG/DL (8.5-10.1); Osmolality,Calculated 277.8 MOS/KG (273-304)
[2020-04-13] MEDS: PANTOPRAZOLE 40 MG TABLET PO SCH (08:39)
[2020-04-13] MEDS: methylPREDNISolone SOD SUC 125 MG/2 ML VIAL IV SCH ×2 (08:43→20:32)
[2020-04-13] MEDS: ENOXAPARIN 40 MG/0.4 ML SYRINGE SUBCUT SCH (15:31)
[2020-04-13] MEDS: AZITHROMYCIN INJ 500 MG in SODIUM CHLORIDE 0.9% 250 ML IV SCH (20:35)
[2020-04-14] MEDS: oxyCODONE/ACETAMINOPHEN 5-325 MG TABLET PO PRN ×3 (00:47→09:27)
[2020-04-14] MEDS: ALBUTEROL/IPRATROPIUM 3 ML NEB RESP TX SCH ×4 (01:16→11:53)
[2020-04-14] MEDS: INSULIN LISPRO 100 UNIT/ML SUBCUT SCH ×3 (01:46→13:39)
[2020-04-14 03:49] LABS: Basophils % 0.1 % (0.0-0.8); Hematocrit 31.4 VOL% (35.7-47.0); Hemoglobin 9.5 GM/DL (12.0-16.0); Immature Granulocytes % 0.8 %; Immature Granulocytes Absolute 0.08 #; Lymphocytes # 0.5 10*3/uL (1.4-4.0); Lymphocytes % 4.9 % (21.3-54.2); Mean Corpuscular HGB Conc 30.3 GM/DL (32-36); Mean Corpuscular Volume 69.2 FL (87-102); Mean Platelet Volume 8.9 FL (9.6-12.0); Monocytes % 1.8 % (1.7-12.7); Neutrophils % 92.4 % (38.7-73.9); Platelet Count 301 T/CUMM (130-400); Red Blood Count 4.54 MC/CUMM (3.8-5.5); Red Cell Distribution Width 18.6 % (9.3-17.3)
[2020-04-14 04:02] LABS: Calcium 8.9 MG/DL (8.5-10.1); Osmolality,Calculated 281.5 MOS/KG (273-304)
[2020-04-14] MEDS: ALUMINUM/MAGNES/SIMETH MAX STR 30 ML UDCUP PO PRN ×2 (04:16→10:47)
[2020-04-14] MEDS: AZTREONAM 2,000 MG in SYRINGE 1 EACH IV SCH ×2 (04:16→10:47)
[2020-04-14 04:48] LABS: Hypochromasia 1+; Lymphocytes 3 % (20-55); Platelet Estimate Adequate; Segmented Neutrophils 95 % (50-85); Total Cells Counted 100
[2020-04-14 04:49] LABS: Microcytosis Slight
[2020-04-14] MEDS: PANTOPRAZOLE 40 MG TABLET PO SCH (08:25)
[2020-04-14] MEDS: methylPREDNISolone SOD SUC 125 MG/2 ML VIAL IV SCH (08:26)
[2020-04-14] MEDS ORDERED: oxyCODONE ER 20 MG TABLET PO SCH (09:00)
[2020-04-14] MEDS: HYDROmorphone 2 MG/1 ML VIAL IV PRN ×2 (12:07→15:09)
[2020-04-14 14:13] VITALS: BP 151/90
== END 2020-04-14 16:31 | disposition home health service (06) | DRG 208 ==
LOC: EDUNIT# → EDBD → N.ED 10:34 → SUATTDRO 12:59 → N.EDINP 12:59 → N.ICU 16:58 → N.4E 04-12 13:54
PROVIDERS: ADMIT Internal Medicine; ATTEND Internal Medicine

== ENCOUNTER 2020-07-21 17:44 | Inpatient (IN) ==
[2020-07-21] MEDS ORDERED: ONDANSETRON 4 MG/2 ML VIAL IV STA (18:19)
[2020-07-21] MEDS ORDERED: MORPHINE 4 MG/1 ML VIAL IV STA ×2 (18:19→20:32)
[2020-07-21 18:50] LABS: Basophils % 0.4 % (0.0-0.8); Eosinophils # 0.2 10*3/uL (0.0-0.87); Eosinophils % 1.8 % (0.00-10.9); Hematocrit 27.1 VOL% (35.7-47.0); Hemoglobin 8.3 GM/DL (12.0-16.0); Immature Granulocytes Absolute 0.08 #; Lymphocytes # 0.8 10*3/uL (1.4-4.0); Lymphocytes % 9.5 % (21.3-54.2); Mean Corpuscular HGB Conc 30.6 GM/DL (32-36); Mean Corpuscular Volume 70.6 FL (87-102); Monocytes % 9.4 % (1.7-12.7); Neutrophils % 77.9 % (38.7-73.9); Platelet Count 302 T/CUMM (130-400); Red Blood Count 3.84 MC/CUMM (3.8-5.5); Red Cell Distribution Width 18.6 % (9.3-17.3); White Blood Count 8.2 T/CUMM (4-12)
[2020-07-21 19:05] LABS: Alanine Aminotransferase 13 U/L (13-56); Albumin 2.3 G/DL (3.4-5.0); Alkaline Phosphatase 112 U/L (45-117); Aspartate Amino Transferase 13 U/L (0-37); Bilirubin,Total < 0.39 MG/DL (0.2-1.0); Blood Urea Nitrogen 8 MG/DL (7-18); Calcium 8.7 MG/DL (8.5-10.1); Carbon Dioxide 30 MMOL/L (21-32); Estimated Glom Filtration Rate 86 ML/MIN; Glucose 82 MG/DL (74-106); INR 1.1; Osmolality,Calculated 266.1 MOS/KG (273-304); PT Patient Result 12.1 SECS (9.8-11.9); Potassium 4.1 MMOL/L (3.5-5.1); Sodium 135 MMOL/L (136-145); Total Protein 6.6 G/DL (6.4-8.3)
[2020-07-21] MEDS ORDERED: GLUCAGON 1 MG VIAL IM PRN (19:21)
[2020-07-21] MEDS ORDERED: DEXTROSE 50% 25 GM/50 ML VIAL IV PRN (19:21)
[2020-07-21] MEDS ORDERED: MORPHINE 4 MG/1 ML VIAL IM ONE (20:30)
[2020-07-21] MEDS ORDERED: ORPHENADRINE 60 MG/2 ML VIAL IV PRN (22:12)
[2020-07-21] MEDS: HYDROmorphone 2 MG/1 ML VIAL IV PRN (22:43)
[2020-07-22] MEDS: ALBUTEROL/IPRATROPIUM 3 ML NEB RESP TX PRN ×2 (00:02→13:38)
[2020-07-22] MEDS: CITALOPRAM 20 MG TABLET PO SCH ×3 (01:47→21:07)
[2020-07-22] MEDS: ENOXAPARIN 40 MG/0.4 ML SYRINGE SUBCUT SCH ×2 (01:48→21:18)
[2020-07-22] MEDS: DOXEPIN 25 MG CAPSULE PO SCH ×2 (01:49→21:07)
[2020-07-22] MEDS: HYDROmorphone 2 MG/1 ML VIAL IV PRN ×3 (02:37→10:27)
[2020-07-22] MEDS: methylPREDNISolone SOD SUC 40 MG/1 ML VIAL IV SCH ×3 (02:42→18:45)
[2020-07-22 05:21] LABS: Basophils % 0.4 % (0.0-0.8); Eosinophils % 0.4 % (0.00-10.9); Hematocrit 29.3 VOL% (35.7-47.0); Hemoglobin 8.5 GM/DL (12.0-16.0); Immature Granulocytes % 0.6 %; Immature Granulocytes Absolute 0.06 #; Lymphocytes # 0.4 10*3/uL (1.4-4.0); Lymphocytes % 4.4 % (21.3-54.2); Mean Corpuscular Volume 72.3 FL (87-102); Mean Platelet Volume 7.9 FL (9.6-12.0); Monocytes % 2.3 % (1.7-12.7); Neutrophils % 91.9 % (38.7-73.9); Platelet Count 302 T/CUMM (130-400); Red Blood Count 4.05 MC/CUMM (3.8-5.5); Red Cell Distribution Width 18.6 % (9.3-17.3); White Blood Count 9.3 T/CUMM (4-12)
[2020-07-22 05:45] LABS: Hypochromasia 1+; Platelet Estimate Adequate
[2020-07-22 05:46] LABS: Microcytosis Slight
[2020-07-22 06:03] LABS: Osmolality,Calculated 264.2 MOS/KG (273-304); Potassium 4.7 MMOL/L (3.5-5.1); Risk Ratio 2.48; Thyroid Stimulating Hormone 37.9 uIU/ml (0.358-3.74); VLDL CHOLESTEROL 15.2 MG/DL
[2020-07-22] MEDS: PANTOPRAZOLE 40 MG TABLET PO SCH (10:06)
[2020-07-22] MEDS: CLOPIDOGREL 75 MG TABLET PO SCH (10:06)
[2020-07-22] MEDS ORDERED: ONDANSETRON 4 MG/2 ML VIAL IV PRN (11:15)
[2020-07-22] MEDS ORDERED: CLINDAMYCIN INJ 600 MG in PREMIX 1 EACH IV ONE (13:00)
[2020-07-22] MEDS ORDERED: fentaNYL 100 MCG/2 ML VIAL ONE ×3 (13:17→15:25)
[2020-07-22] MEDS ORDERED: ETOMIDATE 40 MG/20 ML VIAL IV ONE (13:18)
[2020-07-22] MEDS ORDERED: ROCURONIUM 50 MG/5 ML VIAL IV ONE (13:18)
[2020-07-22] MEDS ORDERED: LIDOCAINE 2% 5 ML VIAL ONE ×2 (13:18→13:29)
[2020-07-22] MEDS ORDERED: ALBUTEROL 2.5 MG/3 ML NEB RESP TX ONE (13:29)
[2020-07-22] MEDS ORDERED: ROPIVACAINE 0.5% 30 ML VIAL ONE (13:29)
[2020-07-22] MEDS ORDERED: DEXAMETHASONE 4 MG/1 ML VIAL ONE (13:29)
[2020-07-22] MEDS ORDERED: LACTATED RINGERS 1,000 ML IV SCH (14:00)
[2020-07-22] MEDS ORDERED: SEVOFLURANE 1 UNIT/15 MINUTE INH ONE ×5 (14:13→16:17)
[2020-07-22] MEDS ORDERED: ONDANSETRON 4 MG/2 ML VIAL ONE (14:13)
[2020-07-22] MEDS ORDERED: PHENYLEPHRINE 1 MG/10 ML SYRINGE IV ONE (14:13)
[2020-07-22] MEDS ORDERED: ACETAMINOPHEN 1,000 MG/100 ML VIAL IV ONE (14:31)
[2020-07-22] MEDS ORDERED: ESMOLOL 100 MG/10 ML VIAL IV ONE (14:40)
[2020-07-22] MEDS ORDERED: GLYCOPYRROLATE 0.4 MG/2 ML VIAL ONE (14:59)
[2020-07-22] MEDS ORDERED: NEOSTIGMINE 10 MG/10 ML VIAL ONE ×3 (14:59)
[2020-07-22] MEDS ORDERED: SODIUM CHLORIDE 0.9% 1,000 ML IV PRN ×2 (15:03→15:08)
[2020-07-22] MEDS ORDERED: SODIUM CHLORIDE 0.9% 250 ML IV ONE (15:03)
[2020-07-22] MEDS ORDERED: MAGNESIUM HYDROXIDE SUSP 30 ML UDCUP PO PRN (15:25)
[2020-07-22] MEDS ORDERED: LACTULOSE 20 GM/30 ML UDCUP PO PRN (15:25)
[2020-07-22] MEDS ORDERED: PROMETHAZINE 25 MG/1 ML VIAL IM PRN (15:25)
[2020-07-22] MEDS ORDERED: TEMAZEPAM 7.5 MG CAPSULE PO PRN (15:25)
[2020-07-22] MEDS ORDERED: BISACODYL 10 MG SUPP RECTAL PRN (15:25)
[2020-07-22] MEDS ORDERED: PROCHLORPERAZINE 10 MG TABLET PO PRN (15:29)
[2020-07-22] MEDS ORDERED: ALBUTEROL/IPRATROPIUM 3 ML NEB RESP TX PRN (15:29)
[2020-07-22] MEDS ORDERED: SODIUM CHLORIDE 0.9% 1,000 ML IV SCH (15:30)
[2020-07-22] MEDS ORDERED: methylPREDNISolone SOD SUC 125 MG/2 ML VIAL ONE ×2 (15:37)
[2020-07-22] MEDS ORDERED: SUGAMMADEX 200 MG/2 ML VIAL IV ONE (15:40)
[2020-07-22 16:11] LABS: Bilirubin,Urine Negative (Negative); Blood, Urine Negative (Negative); Glucose,Urine (UA) Negative (Negative); Hyaline Casts,Urine 2 /LPF (0-3); Ketones,Urine 5 mg/dL (Negative); Mucus,Urine Occasional /LPF (Occasional); Nitrite,Urine Negative (Negative); Protein,Urine Negative; RBC,Urine 3 /HPF (0-4); Squamous Epithelial Cell,Urine Occasional /HPF (0-10); Urine Appearance CLEAR (Clear); Urine Color Yellow (Yellow); Urine Specific Gravity 1.012 (1.001-1.035); Urine Urobilinogen < 2.0 EU/DL (0.2-1.0); WBC,Urine 2 /HPF (0-6)
[2020-07-22] MEDS: THEOPHYLLINE ER 300 MG TABLET PO SCH (21:06)
[2020-07-22] MEDS: oxyCODONE ER 10 MG TABLET PO SCH (21:06)
[2020-07-22] MEDS: DOCUSATE SODIUM 100 MG CAPSULE PO SCH (21:07)
[2020-07-22] MEDS: CLINDAMYCIN INJ 900 MG in PREMIX 1 EACH IV SCH (21:08)
[2020-07-23] MEDS: MORPHINE 4 MG/1 ML VIAL IV PRN ×4 (00:31→13:45)
[2020-07-23] MEDS: oxyCODONE IR 5 MG TABLET PO PRN ×2 (02:26→20:12)
[2020-07-23] MEDS: methylPREDNISolone SOD SUC 40 MG/1 ML VIAL IV SCH ×2 (02:34→10:17)
[2020-07-23] MEDS: CLINDAMYCIN INJ 900 MG in PREMIX 1 EACH IV SCH (04:24)
[2020-07-23 06:18] LABS: Basophils % 0.1 % (0.0-0.8); Hematocrit 31.6 VOL% (35.7-47.0); Hemoglobin 9.7 GM/DL (12.0-16.0); Immature Granulocytes % 1.1 %; Immature Granulocytes Absolute 0.19 #; Lymphocytes # 0.7 10*3/uL (1.4-4.0); Lymphocytes % 4.1 % (21.3-54.2); Mean Corpuscular HGB Conc 30.7 GM/DL (32-36); Mean Corpuscular Volume 74.2 FL (87-102); Mean Platelet Volume 8.3 FL (9.6-12.0); Monocytes % 3.5 % (1.7-12.7); Neutrophils % 91.2 % (38.7-73.9); Platelet Count 360 T/CUMM (130-400); Red Blood Count 4.26 MC/CUMM (3.8-5.5); Red Cell Distribution Width 20.1 % (9.3-17.3)
[2020-07-23 06:45] LABS: Hypochromasia 1+; Lymphocytes 3 % (20-55); Microcytosis 1+; Platelet Estimate Adequate; Segmented Neutrophils 95 % (50-85); Total Cells Counted 100
[2020-07-23] MEDS: LEVOTHYROXINE 75 MCG TABLET PO SCH (06:49)
[2020-07-23 07:11] LABS: Calcium 8.5 MG/DL (8.5-10.1); Osmolality,Calculated 267.5 MOS/KG (273-304); Potassium 4.7 MMOL/L (3.5-5.1)
[2020-07-23] MEDS: oxyCODONE ER 10 MG TABLET PO SCH ×3 (08:35→21:12)
[2020-07-23] MEDS: LIDOCAINE 5% PATCH TRANSDERM SCH (08:35)
[2020-07-23] MEDS: THEOPHYLLINE ER 300 MG TABLET PO SCH ×2 (08:35→20:13)
[2020-07-23] MEDS: CITALOPRAM 20 MG TABLET PO SCH ×2 (08:35→20:12)
[2020-07-23] MEDS: PANTOPRAZOLE 40 MG TABLET PO SCH ×2 (08:36)
[2020-07-23] MEDS: DOCUSATE SODIUM 100 MG CAPSULE PO SCH ×2 (08:36→20:13)
[2020-07-23] MEDS: CLOPIDOGREL 75 MG TABLET PO SCH (08:36)
[2020-07-23] MEDS: ENOXAPARIN 40 MG/0.4 ML SYRINGE SUBCUT SCH (20:12)
[2020-07-23] MEDS: DOXEPIN 25 MG CAPSULE PO SCH (20:12)
[2020-07-23] MEDS: BACLOFEN 10 MG TABLET PO PRN (21:23)
[2020-07-23] MEDS: ALBUTEROL/IPRATROPIUM 3 ML NEB RESP TX PRN (21:42)
[2020-07-24] MEDS: MORPHINE 4 MG/1 ML VIAL IV PRN ×2 (02:47→11:10)
[2020-07-24] MEDS: oxyCODONE IR 5 MG TABLET PO PRN (04:49)
[2020-07-24] MEDS: ALBUTEROL/IPRATROPIUM 3 ML NEB RESP TX PRN ×2 (05:16→08:21)
[2020-07-24] MEDS: LEVOTHYROXINE 75 MCG TABLET PO SCH (06:05)
[2020-07-24 06:57] LABS: Basophils % 0.1 % (0.0-0.8); Hematocrit 33.6 VOL% (35.7-47.0); Hemoglobin 10.3 GM/DL (12.0-16.0); Immature Granulocytes % 0.8 %; Immature Granulocytes Absolute 0.14 #; Lymphocytes # 1.1 10*3/uL (1.4-4.0); Lymphocytes % 6.6 % (21.3-54.2); Mean Corpuscular HGB Conc 30.7 GM/DL (32-36); Mean Corpuscular Volume 74.3 FL (87-102); Mean Platelet Volume 8.3 FL (9.6-12.0); Monocytes % 10.2 % (1.7-12.7); Neutrophils % 82.3 % (38.7-73.9); Platelet Count 354 T/CUMM (130-400); Red Blood Count 4.52 MC/CUMM (3.8-5.5); Red Cell Distribution Width 21.1 % (9.3-17.3)
[2020-07-24] MEDS: DOCUSATE SODIUM 100 MG CAPSULE PO SCH ×2 (08:46→20:23)
[2020-07-24] MEDS: oxyCODONE ER 10 MG TABLET PO SCH ×3 (08:46→20:23)
[2020-07-24] MEDS: THEOPHYLLINE ER 300 MG TABLET PO SCH ×2 (08:47→20:23)
[2020-07-24] MEDS: PANTOPRAZOLE 40 MG TABLET PO SCH ×2 (08:47→10:24)
[2020-07-24] MEDS: CLOPIDOGREL 75 MG TABLET PO SCH (08:48)
[2020-07-24] MEDS: LEVOFLOXACIN INJ 750 MG in PREMIX 1 EACH IV SCH ×2 (08:48→11:12)
[2020-07-24] MEDS ORDERED: predniSONE 20 MG TABLET PO SCH (09:00)
[2020-07-24] MEDS: BACLOFEN 10 MG TABLET PO PRN (13:50)
[2020-07-24] MEDS: methylPREDNISolone SOD SUC 40 MG/1 ML VIAL IV SCH ×2 (13:52→22:11)
[2020-07-24] MEDS: LIDOCAINE 5% PATCH TRANSDERM SCH (14:48)
[2020-07-24] MEDS: ALBUTEROL/IPRATROPIUM 3 ML NEB RESP TX SCH ×2 (15:28→18:45)
[2020-07-24] MEDS: DOXEPIN 25 MG CAPSULE PO SCH (20:23)
[2020-07-24] MEDS: ENOXAPARIN 40 MG/0.4 ML SYRINGE SUBCUT SCH (20:24)
[2020-07-25] MEDS: ALBUTEROL/IPRATROPIUM 3 ML NEB RESP TX SCH ×4 (01:03→19:59)
[2020-07-25] MEDS: oxyCODONE IR 5 MG TABLET PO PRN ×3 (01:34→13:18)
[2020-07-25 06:13] LABS: Basophils % 0.2 % (0.0-0.8); Hematocrit 31.2 VOL% (35.7-47.0); Hemoglobin 9.9 GM/DL (12.0-16.0); Immature Granulocytes % 0.5 %; Immature Granulocytes Absolute 0.07 #; Lymphocytes # 0.5 10*3/uL (1.4-4.0); Lymphocytes % 3.5 % (21.3-54.2); Mean Corpuscular HGB Conc 31.7 GM/DL (32-36); Mean Corpuscular Volume 72.6 FL (87-102); Mean Platelet Volume 8.4 FL (9.6-12.0); Monocytes % 3.8 % (1.7-12.7); Platelet Count 292 T/CUMM (130-400); Red Cell Distribution Width 20.8 % (9.3-17.3); White Blood Count 12.8 T/CUMM (4-12)
[2020-07-25] MEDS: LEVOTHYROXINE 75 MCG TABLET PO SCH (06:43)
[2020-07-25] MEDS: methylPREDNISolone SOD SUC 40 MG/1 ML VIAL IV SCH ×3 (06:47→22:16)
[2020-07-25] MEDS: BACLOFEN 10 MG TABLET PO PRN (07:49)
[2020-07-25 08:22] LABS: Calcium 8.9 MG/DL (8.5-10.1); Osmolality,Calculated 272.1 MOS/KG (273-304); Potassium 3.8 MMOL/L (3.5-5.1)
[2020-07-25] MEDS: PANTOPRAZOLE 40 MG TABLET PO SCH ×2 (09:17→09:30)
[2020-07-25 09:19] LABS: Band Neutrophils 1 % (0-10); Hypochromasia 1+; Lymphocytes 1 % (20-55); Segmented Neutrophils 95 % (50-85); Total Cells Counted 100
[2020-07-25 09:20] LABS: Microcytosis 1+; Platelet Estimate Normal
[2020-07-25] MEDS: LIDOCAINE 5% PATCH TRANSDERM SCH (09:29)
[2020-07-25] MEDS: THEOPHYLLINE ER 300 MG TABLET PO SCH ×2 (09:30→20:26)
[2020-07-25] MEDS: DOCUSATE SODIUM 100 MG CAPSULE PO SCH ×2 (09:30→20:25)
[2020-07-25] MEDS: CLOPIDOGREL 75 MG TABLET PO SCH (09:30)
[2020-07-25] MEDS: oxyCODONE ER 10 MG TABLET PO SCH ×3 (09:31→20:32)
[2020-07-25] MEDS: LEVOFLOXACIN INJ 750 MG in PREMIX 1 EACH IV SCH (09:35)
[2020-07-25] MEDS: MORPHINE 4 MG/1 ML VIAL IV PRN ×2 (15:25→22:17)
[2020-07-25] MEDS: DOXEPIN 25 MG CAPSULE PO SCH (20:25)
[2020-07-25] MEDS: ENOXAPARIN 40 MG/0.4 ML SYRINGE SUBCUT SCH (20:32)
[2020-07-25] MEDS ORDERED: PANTOPRAZOLE 40 MG TABLET PO ONE (21:57)
[2020-07-25] MEDS: ALUMINUM/MAGNES/SIMETH MAX STR 30 ML UDCUP PO PRN (22:17)
[2020-07-26] MEDS: ALBUTEROL/IPRATROPIUM 3 ML NEB RESP TX SCH ×4 (01:03→19:01)
[2020-07-26] MEDS: MORPHINE 4 MG/1 ML VIAL IV PRN ×6 (01:40→23:12)
[2020-07-26] MEDS: methylPREDNISolone SOD SUC 40 MG/1 ML VIAL IV SCH ×3 (05:28→23:04)
[2020-07-26] MEDS: LEVOTHYROXINE 75 MCG TABLET PO SCH (05:30)
[2020-07-26 06:30] LABS: Basophils % 0.1 % (0.0-0.8); Hematocrit 32.3 VOL% (35.7-47.0); Hemoglobin 10.3 GM/DL (12.0-16.0); Immature Granulocytes % 0.9 %; Lymphocytes # 0.5 10*3/uL (1.4-4.0); Lymphocytes % 4.1 % (21.3-54.2); Mean Corpuscular HGB Conc 31.9 GM/DL (32-36); Mean Corpuscular Volume 72.7 FL (87-102); Mean Platelet Volume 8.8 FL (9.6-12.0); Monocytes % 3.5 % (1.7-12.7); Neutrophils % 91.4 % (38.7-73.9); Platelet Count 301 T/CUMM (130-400); Red Blood Count 4.44 MC/CUMM (3.8-5.5); Red Cell Distribution Width 20.8 % (9.3-17.3); White Blood Count 11.6 T/CUMM (4-12)
[2020-07-26 07:19] LABS: Calcium 9.2 MG/DL (8.5-10.1); Osmolality,Calculated 268.4 MOS/KG (273-304); Potassium 3.7 MMOL/L (3.5-5.1)
[2020-07-26 08:12] LABS: Anisocytosis 1+; Band Neutrophils 4 % (0-10); Hypochromasia Slight; Lymphocytes 5 % (20-55); Macrocytosis Slight; Platelet Estimate Normal; Segmented Neutrophils 88 % (50-85); Total Cells Counted 100
[2020-07-26] MEDS: CLOPIDOGREL 75 MG TABLET PO SCH (08:39)
[2020-07-26] MEDS: DOCUSATE SODIUM 100 MG CAPSULE PO SCH ×2 (08:39→20:23)
[2020-07-26] MEDS: PANTOPRAZOLE 40 MG TABLET PO SCH (08:39)
[2020-07-26] MEDS: THEOPHYLLINE ER 300 MG TABLET PO SCH ×2 (08:39→20:23)
[2020-07-26] MEDS: oxyCODONE ER 10 MG TABLET PO SCH ×3 (08:40→20:30)
[2020-07-26] MEDS: LIDOCAINE 5% PATCH TRANSDERM SCH (08:41)
[2020-07-26] MEDS: LEVOFLOXACIN INJ 750 MG in PREMIX 1 EACH IV SCH (08:42)
[2020-07-26] MEDS: ALUMINUM/MAGNES/SIMETH MAX STR 30 ML UDCUP PO PRN (10:56)
[2020-07-26] MEDS: DOXEPIN 25 MG CAPSULE PO SCH (20:23)
[2020-07-26] MEDS: ENOXAPARIN 40 MG/0.4 ML SYRINGE SUBCUT SCH (20:33)
[2020-07-27] MEDS: oxyCODONE IR 5 MG TABLET PO PRN (00:58)
[2020-07-27] MEDS: ALBUTEROL/IPRATROPIUM 3 ML NEB RESP TX SCH ×4 (01:06→19:25)
[2020-07-27] MEDS: MORPHINE 4 MG/1 ML VIAL IV PRN ×3 (04:21→19:28)
[2020-07-27] MEDS: LEVOTHYROXINE 75 MCG TABLET PO SCH (06:39)
[2020-07-27] MEDS: methylPREDNISolone SOD SUC 40 MG/1 ML VIAL IV SCH ×3 (06:40→21:36)
[2020-07-27 07:17] LABS: Basophils % 0.1 % (0.0-0.8); Lymphocytes # 0.9 10*3/uL (1.4-4.0); Lymphocytes % 8.6 % (21.3-54.2); Mean Corpuscular HGB Conc 31.3 GM/DL (32-36); Mean Corpuscular Volume 73.9 FL (87-102); Mean Platelet Volume 8.3 FL (9.6-12.0); Neutrophils % 85.3 % (38.7-73.9); Platelet Count 297 T/CUMM (130-400); Red Blood Count 4.33 MC/CUMM (3.8-5.5); Red Cell Distribution Width 21.3 % (9.3-17.3)
[2020-07-27 07:27] LABS: Osmolality,Calculated 277.8 MOS/KG (273-304); Potassium 5.2 MMOL/L (3.5-5.1)
[2020-07-27] MEDS: oxyCODONE ER 10 MG TABLET PO SCH ×3 (09:32→22:11)
[2020-07-27] MEDS: PANTOPRAZOLE 40 MG TABLET PO SCH (09:33)
[2020-07-27] MEDS: CLOPIDOGREL 75 MG TABLET PO SCH (09:34)
[2020-07-27] MEDS: THEOPHYLLINE ER 300 MG TABLET PO SCH ×2 (09:34→21:26)
[2020-07-27] MEDS: DOCUSATE SODIUM 100 MG CAPSULE PO SCH ×2 (09:34→21:25)
[2020-07-27] MEDS: LEVOFLOXACIN INJ 750 MG in PREMIX 1 EACH IV SCH (09:45)
[2020-07-27] MEDS: LIDOCAINE 5% PATCH TRANSDERM SCH (09:45)
[2020-07-27] MEDS: DOXEPIN 25 MG CAPSULE PO SCH (21:25)
[2020-07-27] MEDS: ENOXAPARIN 40 MG/0.4 ML SYRINGE SUBCUT SCH (21:29)
[2020-07-27] MEDS: ALUMINUM/MAGNES/SIMETH MAX STR 30 ML UDCUP PO PRN (22:28)
[2020-07-28] MEDS: ALBUTEROL/IPRATROPIUM 3 ML NEB RESP TX SCH ×3 (00:08→13:40)
[2020-07-28] MEDS: MORPHINE 4 MG/1 ML VIAL IV PRN ×3 (02:18→11:52)
[2020-07-28 04:40] LABS: Basophils % 0.1 % (0.0-0.8); Hematocrit 31.3 VOL% (35.7-47.0); Hemoglobin 9.8 GM/DL (12.0-16.0); Immature Granulocytes % 0.4 %; Immature Granulocytes Absolute 0.04 #; Lymphocytes # 0.5 10*3/uL (1.4-4.0); Lymphocytes % 5.7 % (21.3-54.2); Mean Corpuscular HGB Conc 31.3 GM/DL (32-36); Mean Corpuscular Volume 73.3 FL (87-102); Monocytes % 2.9 % (1.7-12.7); Neutrophils % 90.9 % (38.7-73.9); Platelet Count 302 T/CUMM (130-400); Red Blood Count 4.27 MC/CUMM (3.8-5.5); Red Cell Distribution Width 21.3 % (9.3-17.3); White Blood Count 8.9 T/CUMM (4-12)
[2020-07-28 05:02] LABS: Hypochromasia 1+; Lymphocytes 6 % (20-55); Microcytosis 1+; Ovalocytes Slight; Platelet Estimate Adequate; Segmented Neutrophils 92 % (50-85); Total Cells Counted 100
[2020-07-28 05:05] LABS: Calcium 8.8 MG/DL (8.5-10.1); Osmolality,Calculated 274.1 MOS/KG (273-304); Potassium 4.2 MMOL/L (3.5-5.1)
[2020-07-28] MEDS: BACLOFEN 10 MG TABLET PO PRN (05:10)
[2020-07-28] MEDS: methylPREDNISolone SOD SUC 40 MG/1 ML VIAL IV SCH ×2 (05:20→14:21)
[2020-07-28] MEDS: LEVOTHYROXINE 75 MCG TABLET PO SCH (05:42)
[2020-07-28] MEDS: THEOPHYLLINE ER 300 MG TABLET PO SCH (09:54)
[2020-07-28] MEDS: CLOPIDOGREL 75 MG TABLET PO SCH (09:54)
[2020-07-28] MEDS: oxyCODONE ER 10 MG TABLET PO SCH ×2 (09:55→14:19)
[2020-07-28] MEDS: DOCUSATE SODIUM 100 MG CAPSULE PO SCH (09:55)
[2020-07-28] MEDS: PANTOPRAZOLE 40 MG TABLET PO SCH (09:55)
[2020-07-28] MEDS: LEVOFLOXACIN INJ 750 MG in PREMIX 1 EACH IV SCH (09:56)
[2020-07-28] MEDS: LIDOCAINE 5% PATCH TRANSDERM SCH (09:56)
[2020-07-28 11:28] VITALS: BP 151/99
== END 2020-07-28 16:20 | disposition swing bed (61) | DRG 521 ==
LOC: EDUNIT# → EDBD → N.ED 17:44 → N.EDINP 19:21 → SUATTDRO 19:21 → N.EDINP 21:06 → N.3E 21:28
PROVIDERS: ADMIT Internal Medicine; ATTEND Internal Medicine Geriatric Medicine

== ENCOUNTER 2020-09-11 11:20 | Observation (INO) ==
[2020-09-11] MEDS ORDERED: ENOXAPARIN 100 MG/ML SYRINGE SUBCUT STA (12:08)
[2020-09-11] MEDS ORDERED: ALBUTEROL/IPRATROPIUM 3 ML NEB RESP TX STA (12:08)
[2020-09-11] MEDS ORDERED: ASPIRIN 325 MG TABLET PO STA (12:08)
[2020-09-11 12:09] LABS: Basophils % 0.4 % (0.0-0.8); Eosinophils # 0.1 10*3/uL (0.0-0.87); Eosinophils % 0.9 % (0.00-10.9); Hematocrit 31.4 VOL% (35.7-47.0); Hemoglobin 9.5 GM/DL (12.0-16.0); Immature Granulocytes % 0.4 %; Immature Granulocytes Absolute 0.04 #; Lymphocytes # 1.6 10*3/uL (1.4-4.0); Lymphocytes % 18.3 % (21.3-54.2); Mean Corpuscular HGB Conc 30.3 GM/DL (32-36); Mean Corpuscular Volume 78.3 FL (87-102); Mean Platelet Volume 8.6 FL (9.6-12.0); Monocytes % 5.3 % (1.7-12.7); Neutrophils % 74.7 % (38.7-73.9); Platelet Count 270 T/CUMM (130-400); Red Blood Count 4.01 MC/CUMM (3.8-5.5); Red Cell Distribution Width 19.1 % (9.3-17.3); White Blood Count 8.9 T/CUMM (4-12)
[2020-09-11] MEDS ORDERED: ENOXAPARIN 60 MG/0.6 ML SYRINGE ONE (12:13)
[2020-09-11] MEDS: NITROGLYCERIN SL 0.4 MG TABLET SL PRN ×2 (12:16→12:25)
[2020-09-11 12:30] LABS: Albumin 2.7 G/DL (3.4-5.0); Bilirubin,Total 0.6 MG/DL (0.2-1.0); Calcium 8.8 MG/DL (8.5-10.1); Osmolality,Calculated 283.1 MOS/KG (273-304); Potassium 3.8 MMOL/L (3.5-5.1); Total Protein 6.1 G/DL (6.4-8.2)
[2020-09-11] MEDS ORDERED: DOCUSATE SODIUM 100 MG CAPSULE PO PRN (14:13)
[2020-09-11] MEDS ORDERED: DEXTROSE 50% 25 GM/50 ML VIAL IV PRN (14:13)
[2020-09-11] MEDS ORDERED: GLUCAGON 1 MG VIAL IM PRN (14:13)
[2020-09-11] MEDS ORDERED: ACETAMINOPHEN 325 MG TABLET PO PRN (14:13)
[2020-09-11] MEDS ORDERED: ALBUTEROL/IPRATROPIUM 3 ML NEB RESP TX PRN (14:24)
[2020-09-11] MEDS ORDERED: LACTULOSE 20 GM/30 ML UDCUP PO PRN (14:24)
[2020-09-11] MEDS: ALBUTEROL/IPRATROPIUM 3 ML NEB RESP TX SCH ×2 (14:39→19:46)
[2020-09-11] MEDS: MORPHINE 4 MG/1 ML VIAL IV PRN ×2 (17:23→21:18)
[2020-09-11] MEDS: FLUTICASONE/SALMETEROL 250-50 DISKUS 14 DOSE INH SCH (21:15)
[2020-09-11] MEDS: ONDANSETRON 4 MG/2 ML VIAL IV PRN (21:18)
[2020-09-11] MEDS: ENOXAPARIN 60 MG/0.6 ML SYRINGE SUBCUT SCH (21:18)
[2020-09-11] MEDS: THEOPHYLLINE ER 300 MG TABLET PO SCH (21:18)
[2020-09-11] MEDS: CITALOPRAM 20 MG TABLET PO SCH (21:18)
[2020-09-12] MEDS: ALBUTEROL/IPRATROPIUM 3 ML NEB RESP TX SCH ×7 (00:13→19:29)
[2020-09-12] MEDS: MORPHINE 4 MG/1 ML VIAL IV PRN ×6 (02:06→20:20)
[2020-09-12] MEDS: ONDANSETRON 4 MG/2 ML VIAL IV PRN ×2 (02:06→05:07)
[2020-09-12 05:44] LABS: Basophils % 0.3 % (0.0-0.8); Eosinophils # 0.1 10*3/uL (0.0-0.87); Eosinophils % 0.6 % (0.00-10.9); Hematocrit 29.7 VOL% (35.7-47.0); Immature Granulocytes % 0.5 %; Immature Granulocytes Absolute 0.05 #; Lymphocytes # 0.9 10*3/uL (1.4-4.0); Lymphocytes % 9.1 % (21.3-54.2); Mean Corpuscular HGB Conc 30.3 GM/DL (32-36); Mean Corpuscular Volume 78.8 FL (87-102); Mean Platelet Volume 8.9 FL (9.6-12.0); Monocytes % 7.1 % (1.7-12.7); Neutrophils % 82.4 % (38.7-73.9); Platelet Count 274 T/CUMM (130-400); Red Blood Count 3.77 MC/CUMM (3.8-5.5); Red Cell Distribution Width 19.2 % (9.3-17.3); White Blood Count 9.8 T/CUMM (4-12)
[2020-09-12 06:09] LABS: Osmolality,Calculated 280.4 MOS/KG (273-304); Potassium 3.6 MMOL/L (3.5-5.1)
[2020-09-12] MEDS: PANTOPRAZOLE 40 MG TABLET PO SCH (06:22)
[2020-09-12] MEDS: LEVOTHYROXINE 75 MCG TABLET PO SCH (06:22)
[2020-09-12] MEDS: ENOXAPARIN 60 MG/0.6 ML SYRINGE SUBCUT SCH (09:22)
[2020-09-12] MEDS: LIDOCAINE 5% PATCH TRANSDERM SCH ×2 (09:23→11:47)
[2020-09-12] MEDS: FLUTICASONE/SALMETEROL 250-50 DISKUS 14 DOSE INH SCH ×2 (09:24→20:21)
[2020-09-12] MEDS: FLUDROCORTISONE 0.1 MG TABLET PO SCH (09:25)
[2020-09-12] MEDS: CITALOPRAM 20 MG TABLET PO SCH (09:25)
[2020-09-12] MEDS: CLOPIDOGREL 75 MG TABLET PO SCH (09:25)
[2020-09-12] MEDS: THEOPHYLLINE ER 300 MG TABLET PO SCH ×2 (09:25→20:21)
[2020-09-12] MEDS: LEVOFLOXACIN INJ 500 MG in PREMIX 1 EACH IV SCH ×2 (11:05→12:30)
[2020-09-12 11:25] LABS: Bilirubin,Urine Negative (Negative); Blood, Urine Negative (Negative); Glucose,Urine (UA) Negative (Negative); Ketones,Urine Negative (Negative); Mucus,Urine Occasional /LPF (Occasional); Nitrite,Urine Negative (Negative); Protein,Urine Negative; RBC,Urine 2 /HPF (0-4); Squamous Epithelial Cell,Urine Occasional /HPF (0-10); Urine Appearance CLEAR (Clear); Urine Color Yellow (Yellow); Urine Specific Gravity 1.051 (1.001-1.035); Urine Urobilinogen < 2.0 EU/DL (0.2-1.0); WBC,Urine 5 /HPF (0-6)
[2020-09-12] MEDS: ENOXAPARIN 40 MG/0.4 ML SYRINGE SUBCUT SCH (15:19)
[2020-09-12] MEDS ORDERED: ALUMINUM/MAGNES/SIMETH MAX STR 30 ML UDCUP PO PRN (22:29)
[2020-09-12] MEDS: ZALEPLON 5 MG CAPSULE PO PRN (22:45)
[2020-09-13] MEDS: MORPHINE 4 MG/1 ML VIAL IV PRN ×6 (00:50→21:30)
[2020-09-13] MEDS: ALBUTEROL/IPRATROPIUM 3 ML NEB RESP TX SCH ×6 (03:10→22:35)
[2020-09-13 05:41] LABS: Basophils % 0.4 % (0.0-0.8); Eosinophils # 0.1 10*3/uL (0.0-0.87); Eosinophils % 0.8 % (0.00-10.9); Hematocrit 29.5 VOL% (35.7-47.0); Hemoglobin 9.2 GM/DL (12.0-16.0); Immature Granulocytes % 0.5 %; Immature Granulocytes Absolute 0.05 #; Lymphocytes # 1.2 10*3/uL (1.4-4.0); Lymphocytes % 11.3 % (21.3-54.2); Mean Corpuscular HGB Conc 31.2 GM/DL (32-36); Mean Corpuscular Volume 77.8 FL (87-102); Mean Platelet Volume 8.8 FL (9.6-12.0); Monocytes % 9.7 % (1.7-12.7); Neutrophils % 77.3 % (38.7-73.9); Platelet Count 254 T/CUMM (130-400); Red Blood Count 3.79 MC/CUMM (3.8-5.5); Red Cell Distribution Width 18.9 % (9.3-17.3); White Blood Count 10.3 T/CUMM (4-12)
[2020-09-13 05:59] LABS: Calcium 9.2 MG/DL (8.5-10.1); Osmolality,Calculated 280.3 MOS/KG (273-304); Potassium 4.3 MMOL/L (3.5-5.1)
[2020-09-13] MEDS: LEVOTHYROXINE 75 MCG TABLET PO SCH (06:20)
[2020-09-13] MEDS: PANTOPRAZOLE 40 MG TABLET PO SCH (06:20)
[2020-09-13] MEDS ORDERED: MAGNESIUM HYDROXIDE SUSP 30 ML UDCUP PO ONE (09:13)
[2020-09-13] MEDS: FLUTICASONE/SALMETEROL 250-50 DISKUS 14 DOSE INH SCH ×2 (09:23→20:13)
[2020-09-13] MEDS: THEOPHYLLINE ER 300 MG TABLET PO SCH ×2 (09:26→20:13)
[2020-09-13] MEDS: FLUDROCORTISONE 0.1 MG TABLET PO SCH (09:26)
[2020-09-13] MEDS: CLOPIDOGREL 75 MG TABLET PO SCH (09:27)
[2020-09-13] MEDS: LIDOCAINE 5% PATCH TRANSDERM SCH (09:28)
[2020-09-13] MEDS: LEVOFLOXACIN INJ 500 MG in PREMIX 1 EACH IV SCH (09:43)
[2020-09-13] MEDS: DOCUSATE SODIUM 100 MG CAPSULE PO SCH ×2 (12:45→20:13)
[2020-09-13] MEDS: ENOXAPARIN 40 MG/0.4 ML SYRINGE SUBCUT SCH (13:43)
[2020-09-13] MEDS: POLYETHYLENE GLYCOL POWDER 17 GM PACK PO SCH ×2 (17:12→20:13)
[2020-09-13] MEDS: ZALEPLON 5 MG CAPSULE PO PRN (20:13)
[2020-09-13] MEDS ORDERED: SENNA 8.6 MG TABLET PO SCH (21:00)
[2020-09-14] MEDS: MORPHINE 4 MG/1 ML VIAL IV PRN ×2 (01:06→14:10)
[2020-09-14] MEDS: ALBUTEROL/IPRATROPIUM 3 ML NEB RESP TX SCH ×3 (02:03→11:01)
[2020-09-14 06:06] LABS: Basophils % 0.5 % (0.0-0.8); Eosinophils # 0.1 10*3/uL (0.0-0.87); Eosinophils % 1.3 % (0.00-10.9); Hematocrit 28.1 VOL% (35.7-47.0); Hemoglobin 8.4 GM/DL (12.0-16.0); Immature Granulocytes % 0.4 %; Immature Granulocytes Absolute 0.03 #; Lymphocytes # 1.2 10*3/uL (1.4-4.0); Mean Corpuscular HGB Conc 29.9 GM/DL (32-36); Mean Corpuscular Volume 79.4 FL (87-102); Mean Platelet Volume 8.8 FL (9.6-12.0); Monocytes % 9.4 % (1.7-12.7); Neutrophils % 73.4 % (38.7-73.9); Platelet Count 259 T/CUMM (130-400); Red Blood Count 3.54 MC/CUMM (3.8-5.5); Red Cell Distribution Width 18.7 % (9.3-17.3); White Blood Count 7.9 T/CUMM (4-12)
[2020-09-14] MEDS: LEVOTHYROXINE 75 MCG TABLET PO SCH (06:30)
[2020-09-14] MEDS: PANTOPRAZOLE 40 MG TABLET PO SCH (06:30)
[2020-09-14 06:35] LABS: Calcium 8.9 MG/DL (8.5-10.1); Osmolality,Calculated 280.3 MOS/KG (273-304); Potassium 3.5 MMOL/L (3.5-5.1)
[2020-09-14] MEDS ORDERED: POTASSIUM CHLORIDE 20 MEQ TABLET PO ONE (07:46)
[2020-09-14] MEDS ORDERED: LINACLOTIDE 145 MCG CAPSULE PO SCH (08:00)
[2020-09-14] MEDS: POLYETHYLENE GLYCOL POWDER 17 GM PACK PO SCH (09:28)
[2020-09-14] MEDS: FLUDROCORTISONE 0.1 MG TABLET PO SCH (09:28)
[2020-09-14] MEDS: LIDOCAINE 5% PATCH TRANSDERM SCH (09:29)
[2020-09-14] MEDS: DOCUSATE SODIUM 100 MG CAPSULE PO SCH (09:29)
[2020-09-14] MEDS: CLOPIDOGREL 75 MG TABLET PO SCH (09:29)
[2020-09-14] MEDS: FLUTICASONE/SALMETEROL 250-50 DISKUS 14 DOSE INH SCH (09:29)
[2020-09-14] MEDS: THEOPHYLLINE ER 300 MG TABLET PO SCH (09:41)
[2020-09-14] MEDS: LEVOFLOXACIN INJ 500 MG in PREMIX 1 EACH IV SCH (09:42)
[2020-09-14 12:12] VITALS: BP 118/71
[2020-09-14] MEDS: ONDANSETRON 4 MG/2 ML VIAL IV PRN (14:11)
[2020-09-14] MEDS: ENOXAPARIN 40 MG/0.4 ML SYRINGE SUBCUT SCH (14:11)
== END 2020-09-14 15:45 | disposition home health service (06) ==
LOC: EDBD → EDUNIT# → N.EDINP 11:20 → N.ED 11:20 → N.EDINP 16:31 → N.TELES 16:34
PROVIDERS: ADMIT Hospitalist; ATTEND Hospitalist

== ENCOUNTER 2020-09-23 07:15 | Inpatient (IN) ==
[2020-09-23] MEDS ORDERED: methylPREDNISolone SOD SUC 125 MG/2 ML VIAL IV STA (07:47)
[2020-09-23] MEDS ORDERED: ALBUTEROL 2.5 MG/3 ML NEB RESP TX STA (07:49)
[2020-09-23 07:53] LABS: Basophils % 0.4 % (0.0-0.8); Eosinophils # 0.2 10*3/uL (0.0-0.87); Hematocrit 31.1 VOL% (35.7-47.0); Hemoglobin 9.2 GM/DL (12.0-16.0); Immature Granulocytes % 0.7 %; Immature Granulocytes Absolute 0.06 #; Lymphocytes % 10.8 % (21.3-54.2); Mean Corpuscular HGB Conc 29.6 GM/DL (32-36); Mean Corpuscular Volume 80.2 FL (87-102); Mean Platelet Volume 8.4 FL (9.6-12.0); Monocytes % 6.8 % (1.7-12.7); Neutrophils % 79.3 % (38.7-73.9); Platelet Count 312 T/CUMM (130-400); Red Blood Count 3.88 MC/CUMM (3.8-5.5); Red Cell Distribution Width 18.2 % (9.3-17.3)
[2020-09-23 08:02] LABS: INR 1.1; PT Patient Result 11.9 SECS (9.8-11.9)
[2020-09-23 08:14] LABS: Alanine Aminotransferase 13 U/L (13-56); Albumin 2.7 G/DL (3.4-5.0); Alkaline Phosphatase 132 U/L (45-117); Aspartate Amino Transferase 16 U/L (0-37); Bilirubin,Total < 0.39 MG/DL (0.2-1.0); Blood Urea Nitrogen 17 MG/DL (7-18); Calcium 9.2 MG/DL (8.5-10.1); Carbon Dioxide 29 MMOL/L (21-32); Estimated Glom Filtration Rate 93 ML/MIN; Glucose 169 MG/DL (74-106); Osmolality,Calculated 282.5 MOS/KG (273-304); Potassium 4.1 MMOL/L (3.5-5.1); Sodium 139 MMOL/L (136-145); Total Protein 6.3 G/DL (6.4-8.2)
[2020-09-23 08:14] LABS: ABG HCO3 27.2 MMOL/L (20-26); ABG Oxygen Saturation 98.8 % (95-100); ABG PCO2 41.8 MM HG (35-48); ABG PH 7.428 (7.35-7.45); ABG TCO2 25.4 MMOL/L (23-27)
[2020-09-23 08:47] LABS: Bilirubin,Urine Negative (Negative); Blood, Urine Negative (Negative); Glucose,Urine (UA) Negative (Negative); Ketones,Urine Negative (Negative); Mucus,Urine Occasional /LPF (Occasional); Nitrite,Urine Negative (Negative); Protein,Urine Negative; RBC,Urine 2 /HPF (0-4); Squamous Epithelial Cell,Urine Occasional /HPF (0-10); Urine Appearance Slightly Hazy (Clear); Urine Color Yellow (Yellow); Urine Specific Gravity 1.017 (1.001-1.035); Urine Urobilinogen < 2.0 EU/DL (0.2-1.0)
[2020-09-23] MEDS ORDERED: LEVOFLOXACIN 500 MG TABLET PO STA (11:04)
[2020-09-23] MEDS ORDERED: GLUCAGON 1 MG VIAL IM PRN (12:17)
[2020-09-23] MEDS ORDERED: ONDANSETRON 4 MG/2 ML VIAL IV PRN (12:17)
[2020-09-23] MEDS ORDERED: DOCUSATE SODIUM 100 MG CAPSULE PO PRN (12:17)
[2020-09-23] MEDS ORDERED: DEXTROSE 50% 25 GM/50 ML VIAL IV PRN (12:17)
[2020-09-23] MEDS ORDERED: methylPREDNISolone SOD SUC 40 MG/1 ML VIAL IV SCH (12:30)
[2020-09-23 13:00] LABS: Thyroid Stimulating Hormone 4.26 uIU/ml (0.358-3.74)
[2020-09-23] MEDS: HYDROmorphone 2 MG/1 ML VIAL IV PRN ×4 (13:41→23:45)
[2020-09-23] MEDS: AZTREONAM 2,000 MG in SODIUM CHLORIDE 0.9% 100 ML IV SCH ×3 (13:43→22:45)
[2020-09-23] MEDS: ENOXAPARIN 40 MG/0.4 ML SYRINGE SUBCUT SCH (13:44)
[2020-09-23] MEDS: ALBUTEROL/IPRATROPIUM 3 ML NEB RESP TX SCH ×2 (13:55→20:00)
[2020-09-23] MEDS: methylPREDNISolone SOD SUC 40 MG/1 ML VIAL IV SCH (20:22)
[2020-09-24] MEDS: ALBUTEROL/IPRATROPIUM 3 ML NEB RESP TX SCH ×4 (01:31→19:00)
[2020-09-24] MEDS: methylPREDNISolone SOD SUC 40 MG/1 ML VIAL IV SCH ×3 (04:42→20:13)
[2020-09-24 05:51] LABS: Basophils % 0.2 % (0.0-0.8); Hematocrit 29.3 VOL% (35.7-47.0); Hemoglobin 8.8 GM/DL (12.0-16.0); Immature Granulocytes % 0.8 %; Immature Granulocytes Absolute 0.09 #; Lymphocytes # 0.7 10*3/uL (1.4-4.0); Lymphocytes % 6.4 % (21.3-54.2); Mean Corpuscular Volume 79.6 FL (87-102); Mean Platelet Volume 8.9 FL (9.6-12.0); Monocytes % 2.4 % (1.7-12.7); Neutrophils % 90.2 % (38.7-73.9); Platelet Count 360 T/CUMM (130-400); Red Blood Count 3.68 MC/CUMM (3.8-5.5); Red Cell Distribution Width 17.7 % (9.3-17.3); White Blood Count 10.7 T/CUMM (4-12)
[2020-09-24] MEDS: AZTREONAM 2,000 MG in SODIUM CHLORIDE 0.9% 100 ML IV SCH ×3 (05:59→20:17)
[2020-09-24 06:06] LABS: Calcium 9.4 MG/DL (8.5-10.1); Osmolality,Calculated 287.4 MOS/KG (273-304); Potassium 5.1 MMOL/L (3.5-5.1)
[2020-09-24] MEDS: HYDROmorphone 2 MG/1 ML VIAL IV PRN ×6 (06:08→21:21)
[2020-09-24] MEDS: LEVOFLOXACIN INJ 750 MG/150 ML PREMIX IV SCH (08:23)
[2020-09-24] MEDS ORDERED: PANTOPRAZOLE 40 MG TABLET PO SCH (09:00)
[2020-09-24] MEDS: ENOXAPARIN 40 MG/0.4 ML SYRINGE SUBCUT SCH (12:56)
[2020-09-24] MEDS: GABAPENTIN 100 MG CAPSULE PO SCH ×2 (15:17→20:13)
[2020-09-24] MEDS: oxyCODONE ER 20 MG TABLET PO SCH (20:13)
[2020-09-25] MEDS: HYDROmorphone 2 MG/1 ML VIAL IV PRN ×6 (01:02→17:42)
[2020-09-25] MEDS: methylPREDNISolone SOD SUC 40 MG/1 ML VIAL IV SCH ×3 (04:24→21:14)
[2020-09-25] MEDS: AZTREONAM 2,000 MG in SODIUM CHLORIDE 0.9% 100 ML IV SCH ×3 (04:28→21:16)
[2020-09-25] MEDS: ALBUTEROL/IPRATROPIUM 3 ML NEB RESP TX SCH ×4 (07:11→19:28)
[2020-09-25] MEDS ORDERED: FLUTICASONE 50 MCG NASAL SPRAY 16 GM BOTTLE BOTH NARES PRN (07:30)
[2020-09-25] MEDS ORDERED: LIDOCAINE 5% PATCH TRANSDERM PRN (07:30)
[2020-09-25 08:18] LABS: Basophils % 0.1 % (0.0-0.8); Hematocrit 29.7 VOL% (35.7-47.0); Immature Granulocytes % 1.1 %; Immature Granulocytes Absolute 0.17 #; Lymphocytes # 0.7 10*3/uL (1.4-4.0); Lymphocytes % 4.8 % (21.3-54.2); Mean Corpuscular HGB Conc 30.3 GM/DL (32-36); Mean Corpuscular Volume 80.1 FL (87-102); Mean Platelet Volume 8.7 FL (9.6-12.0); Monocytes % 1.5 % (1.7-12.7); Neutrophils % 92.5 % (38.7-73.9); Platelet Count 356 T/CUMM (130-400); Red Blood Count 3.71 MC/CUMM (3.8-5.5); Red Cell Distribution Width 17.8 % (9.3-17.3); White Blood Count 15.2 T/CUMM (4-12)
[2020-09-25 08:33] LABS: Calcium 9.2 MG/DL (8.5-10.1); Osmolality,Calculated 288.4 MOS/KG (273-304); Potassium 4.6 MMOL/L (3.5-5.1)
[2020-09-25 08:38] LABS: Lymphocytes 4 % (20-55); Segmented Neutrophils 95 % (50-85); Total Cells Counted 100
[2020-09-25 08:39] LABS: Hypochromasia 1+; Microcytosis 1+; Platelet Estimate Adequate
[2020-09-25] MEDS: oxyCODONE ER 20 MG TABLET PO SCH ×2 (08:45→21:13)
[2020-09-25] MEDS: GABAPENTIN 100 MG CAPSULE PO SCH ×3 (08:45→21:13)
[2020-09-25] MEDS: LEVOFLOXACIN INJ 750 MG/150 ML PREMIX IV SCH (08:46)
[2020-09-25] MEDS: CLOPIDOGREL 75 MG TABLET PO SCH (08:46)
[2020-09-25] MEDS ORDERED: CITALOPRAM 20 MG TABLET PO SCH (09:00)
[2020-09-25] MEDS: FLUDROCORTISONE 0.1 MG TABLET PO SCH (09:44)
[2020-09-25] MEDS: FLUTICASONE/SALMETEROL 250-50 DISKUS 14 DOSE INH SCH ×2 (09:44→22:27)
[2020-09-25] MEDS: ENOXAPARIN 40 MG/0.4 ML SYRINGE SUBCUT SCH (12:10)
[2020-09-25] MEDS ORDERED: guaiFENesin 200 MG/10 ML UDCUP PO PRN (14:15)
[2020-09-25] MEDS ORDERED: TEMAZEPAM 15 MG CAPSULE PO PRN (14:15)
[2020-09-25] MEDS: THEOPHYLLINE ER 300 MG TABLET PO SCH (16:04)
[2020-09-25] MEDS: MEGESTROL 40 MG TABLET PO SCH (16:04)
[2020-09-25] MEDS ORDERED: guaiFENesin/DM ER 600-30 MG TABLET PO PRN (17:17)
[2020-09-25] MEDS: PANTOPRAZOLE 40 MG TABLET PO SCH (17:42)
[2020-09-25] MEDS ORDERED: DOXEPIN 25 MG CAPSULE PO SCH (21:00)
[2020-09-25] MEDS ORDERED: POLYETHYLENE GLYCOL POWDER 17 GM PACK PO SCH (21:00)
[2020-09-26] MEDS: ALBUTEROL/IPRATROPIUM 3 ML NEB RESP TX SCH ×3 (02:09→13:36)
[2020-09-26] MEDS: HYDROmorphone 2 MG/1 ML VIAL IV PRN ×4 (02:36→14:22)
[2020-09-26 05:26] LABS: Hematocrit 29.4 VOL% (35.7-47.0); Hemoglobin 8.7 GM/DL (12.0-16.0); Immature Granulocytes % 1.3 %; Immature Granulocytes Absolute 0.14 #; Lymphocytes # 0.4 10*3/uL (1.4-4.0); Mean Corpuscular HGB Conc 29.6 GM/DL (32-36); Mean Corpuscular Volume 80.3 FL (87-102); Mean Platelet Volume 9.1 FL (9.6-12.0); Monocytes % 2.2 % (1.7-12.7); Neutrophils % 92.5 % (38.7-73.9); Platelet Count 353 T/CUMM (130-400); Red Blood Count 3.66 MC/CUMM (3.8-5.5); Red Cell Distribution Width 17.7 % (9.3-17.3); White Blood Count 10.7 T/CUMM (4-12)
[2020-09-26] MEDS: AZTREONAM 2,000 MG in SODIUM CHLORIDE 0.9% 100 ML IV SCH ×2 (05:59→13:12)
[2020-09-26] MEDS: PANTOPRAZOLE 40 MG TABLET PO SCH (05:59)
[2020-09-26 06:00] LABS: Calcium 8.8 MG/DL (8.5-10.1); Osmolality,Calculated 290.5 MOS/KG (273-304)
[2020-09-26 06:05] LABS: Lymphocytes 6 % (20-55); Platelet Estimate Normal; Segmented Neutrophils 92 % (50-85); Total Cells Counted 100
[2020-09-26] MEDS ORDERED: LEVOTHYROXINE 75 MCG TABLET PO SCH (06:30)
[2020-09-26] MEDS ORDERED: LEVOFLOXACIN 750 MG TABLET PO SCH (09:00)
[2020-09-26] MEDS: methylPREDNISolone SOD SUC 40 MG/1 ML VIAL IV SCH (09:57)
[2020-09-26] MEDS: FLUTICASONE/SALMETEROL 250-50 DISKUS 14 DOSE INH SCH (09:57)
[2020-09-26 11:36] VITALS: BP 146/86
[2020-09-26] MEDS: GABAPENTIN 100 MG CAPSULE PO SCH ×2 (13:10→16:34)
[2020-09-26] MEDS: MEGESTROL 40 MG TABLET PO SCH (13:10)
[2020-09-26] MEDS: CLOPIDOGREL 75 MG TABLET PO SCH (13:10)
[2020-09-26] MEDS: oxyCODONE ER 20 MG TABLET PO SCH (13:11)
[2020-09-26] MEDS: THEOPHYLLINE ER 300 MG TABLET PO SCH (13:11)
[2020-09-26] MEDS: FLUDROCORTISONE 0.1 MG TABLET PO SCH (13:11)
[2020-09-26] MEDS: ENOXAPARIN 40 MG/0.4 ML SYRINGE SUBCUT SCH (13:12)
== END 2020-09-26 16:00 | disposition home health service (06) | DRG 190 ==
LOC: EDUNIT# → EDBD → N.ED 07:15 → N.EDINP 12:17 → N.5E 14:32
PROVIDERS: ADMIT Internal Medicine; ATTEND Internal Medicine

== ENCOUNTER 2020-10-09 18:36 | Inpatient (IN) ==
[2020-10-09 20:26] LABS: Basophils % 0.5 % (0.0-0.8); Eosinophils # 0.2 10*3/uL (0.0-0.87); Eosinophils % 1.7 % (0.00-10.9); Immature Granulocytes % 0.6 %; Immature Granulocytes Absolute 0.05 #; Lymphocytes # 0.9 10*3/uL (1.4-4.0); Lymphocytes % 10.8 % (21.3-54.2); Mean Corpuscular Volume 78.7 FL (87-102); Mean Platelet Volume 8.2 FL (9.6-12.0); Monocytes % 8.8 % (1.7-12.7); Neutrophils % 77.6 % (38.7-73.9); Platelet Count 282 T/CUMM (130-400); Red Blood Count 3.81 MC/CUMM (3.8-5.5); Red Cell Distribution Width 17.2 % (9.3-17.3); White Blood Count 8.7 T/CUMM (4-12)
[2020-10-09] MEDS ORDERED: LEVOFLOXACIN INJ 750 MG/150 ML PREMIX IV STA (20:50)
[2020-10-09] MEDS ORDERED: methylPREDNISolone SOD SUC 125 MG/2 ML VIAL IV STA (20:50)
[2020-10-09] MEDS ORDERED: ALBUTEROL/IPRATROPIUM 3 ML NEB RESP TX STA (20:50)
[2020-10-09 20:55] LABS: Alanine Aminotransferase 10 U/L (13-56); Albumin 2.4 G/DL (3.4-5.0); Alkaline Phosphatase 87 U/L (45-117); Aspartate Amino Transferase 10 U/L (0-37); Bilirubin,Total < 0.39 MG/DL (0.2-1.0); Blood Urea Nitrogen 13 MG/DL (7-18); Carbon Dioxide 30 MMOL/L (21-32); Estimated Glom Filtration Rate 79 ML/MIN; Glucose 105 MG/DL (74-106); Osmolality,Calculated 276.5 MOS/KG (273-304); Potassium 3.9 MMOL/L (3.5-5.1); Sodium 139 MMOL/L (136-145); Total Protein 6.5 G/DL (6.4-8.2)
[2020-10-09] MEDS ORDERED: MORPHINE 4 MG/1 ML VIAL IV STA (21:32)
[2020-10-09] MEDS ORDERED: ONDANSETRON 4 MG/2 ML VIAL IV PRN (21:47)
[2020-10-09] MEDS ORDERED: ZALEPLON 5 MG CAPSULE PO PRN (21:47)
[2020-10-09] MEDS ORDERED: guaiFENesin/DM ER 600-30 MG TABLET PO PRN ×2 (21:47→23:18)
[2020-10-09] MEDS ORDERED: NICOTINE 21 MG/24 HR PATCH TRANSDERM PRN (21:47)
[2020-10-09] MEDS ORDERED: hydrALAZINE 20 MG/1 ML VIAL IV PRN (21:47)
[2020-10-09] MEDS ORDERED: ALBUTEROL 2.5 MG/3 ML NEB RESP TX PRN (21:47)
[2020-10-09] MEDS ORDERED: GLUCAGON 1 MG VIAL IM PRN (21:47)
[2020-10-09] MEDS ORDERED: DEXTROSE 50% 25 GM/50 ML VIAL IV PRN (21:47)
[2020-10-09] MEDS ORDERED: diphenhydrAMINE CAP 25 MG CAPSULE PO PRN (21:47)
[2020-10-09 22:03] LABS: Allen Test Positive
[2020-10-09 22:04] LABS: ABG Base Excess 3.8 MMOL/L (-2.5-2.5); ABG HCO3 27.8 MMOL/L (20-26); ABG Oxygen Saturation 98.6 % (95-100); ABG PCO2 42.9 MM HG (35-48); ABG TCO2 26.2 MMOL/L (23-27)
[2020-10-09] MEDS: HYDROmorphone 2 MG/1 ML VIAL IV PRN (23:50)
[2020-10-10] MEDS: ALBUTEROL/IPRATROPIUM 3 ML NEB RESP TX SCH ×4 (00:52→19:20)
[2020-10-10] MEDS: MORPHINE 4 MG/1 ML VIAL IV PRN ×2 (04:37→21:49)
[2020-10-10] MEDS: LEVOTHYROXINE 75 MCG TABLET PO SCH (06:25)
[2020-10-10 06:32] LABS: Basophils % 0.2 % (0.0-0.8); Hematocrit 28.2 VOL% (35.7-47.0); Hemoglobin 8.8 GM/DL (12.0-16.0); Immature Granulocytes % 0.3 %; Immature Granulocytes Absolute 0.02 #; Lymphocytes # 0.3 10*3/uL (1.4-4.0); Lymphocytes % 5.1 % (21.3-54.2); Mean Corpuscular HGB Conc 31.2 GM/DL (32-36); Mean Corpuscular Volume 76.8 FL (87-102); Mean Platelet Volume 8.7 FL (9.6-12.0); Monocytes % 0.7 % (1.7-12.7); Neutrophils % 93.7 % (38.7-73.9); Platelet Count 268 T/CUMM (130-400); Red Blood Count 3.67 MC/CUMM (3.8-5.5); Red Cell Distribution Width 16.9 % (9.3-17.3); White Blood Count 5.7 T/CUMM (4-12)
[2020-10-10 06:51] LABS: Lymphocytes 3 % (20-55); Platelet Estimate Adequate; Segmented Neutrophils 97 % (50-85); Total Cells Counted 100
[2020-10-10 06:52] LABS: Hypochromasia 1+; Microcytosis 1+
[2020-10-10 07:03] LABS: Albumin 2.4 G/DL (3.4-5.0); Calcium 9.6 MG/DL (8.5-10.1); Osmolality,Calculated 282.5 MOS/KG (273-304); Potassium 4.3 MMOL/L (3.5-5.1); Total Protein 6.7 G/DL (6.4-8.2)
[2020-10-10] MEDS: ENOXAPARIN 40 MG/0.4 ML SYRINGE SUBCUT SCH (08:53)
[2020-10-10] MEDS: MEGESTROL 40 MG TABLET PO SCH ×2 (08:54→21:47)
[2020-10-10] MEDS: CLOPIDOGREL 75 MG TABLET PO SCH (08:54)
[2020-10-10] MEDS: FLUDROCORTISONE 0.1 MG TABLET PO SCH (08:54)
[2020-10-10] MEDS: PANTOPRAZOLE 40 MG TABLET PO SCH (08:54)
[2020-10-10] MEDS: CITALOPRAM 20 MG TABLET PO SCH (08:54)
[2020-10-10] MEDS: oxyCODONE ER 20 MG TABLET PO SCH ×2 (08:54→21:47)
[2020-10-10] MEDS: ACETAMINOPHEN 325 MG TABLET PO PRN (14:22)
[2020-10-10] MEDS ORDERED: LEVOFLOXACIN INJ 750 MG/150 ML PREMIX IV SCH (21:00)
[2020-10-10] MEDS: POLYETHYLENE GLYCOL POWDER 17 GM PACK PO SCH (21:45)
[2020-10-10] MEDS: BUDESONIDE/FORMOTEROL 160-4.5 INHALER 6 GM INH SCH (21:48)
[2020-10-11] MEDS: ALBUTEROL/IPRATROPIUM 3 ML NEB RESP TX SCH ×4 (01:08→19:57)
[2020-10-11] MEDS: LEVOTHYROXINE 75 MCG TABLET PO SCH (06:23)
[2020-10-11] MEDS: oxyCODONE ER 20 MG TABLET PO SCH ×2 (08:22→20:58)
[2020-10-11] MEDS: FLUDROCORTISONE 0.1 MG TABLET PO SCH (08:22)
[2020-10-11] MEDS: CLOPIDOGREL 75 MG TABLET PO SCH (08:22)
[2020-10-11] MEDS: MEGESTROL 40 MG TABLET PO SCH ×2 (08:22→20:58)
[2020-10-11] MEDS: BUDESONIDE/FORMOTEROL 160-4.5 INHALER 6 GM INH SCH ×2 (08:22→20:59)
[2020-10-11] MEDS: CITALOPRAM 20 MG TABLET PO SCH (08:22)
[2020-10-11] MEDS: PANTOPRAZOLE 40 MG TABLET PO SCH (08:23)
[2020-10-11] MEDS: ENOXAPARIN 40 MG/0.4 ML SYRINGE SUBCUT SCH (08:24)
[2020-10-11] MEDS: MORPHINE 4 MG/1 ML VIAL IV PRN ×2 (13:03→18:07)
[2020-10-11] MEDS ORDERED: PHENOL 1.4% THROAT SPRAY 177 ML BOTTLE PO PRN (14:57)
[2020-10-11] MEDS: DEXTROMETHORPHAN ER 6 MG/ML 90 ML/BOTTLE PO PRN (15:30)
[2020-10-11] MEDS: methylPREDNISolone SOD SUC 40 MG/1 ML VIAL IV SCH (18:07)
[2020-10-11] MEDS: POLYETHYLENE GLYCOL POWDER 17 GM PACK PO SCH (20:58)
[2020-10-12] MEDS: ALBUTEROL/IPRATROPIUM 3 ML NEB RESP TX SCH ×4 (00:48→19:51)
[2020-10-12] MEDS: methylPREDNISolone SOD SUC 40 MG/1 ML VIAL IV SCH ×3 (02:02→17:40)
[2020-10-12] MEDS: MORPHINE 4 MG/1 ML VIAL IV PRN ×2 (02:04→19:25)
[2020-10-12] MEDS: LEVOTHYROXINE 75 MCG TABLET PO SCH (06:11)
[2020-10-12] MEDS: oxyCODONE ER 20 MG TABLET PO SCH ×2 (09:00→20:56)
[2020-10-12] MEDS: ENOXAPARIN 40 MG/0.4 ML SYRINGE SUBCUT SCH (09:00)
[2020-10-12] MEDS: FLUDROCORTISONE 0.1 MG TABLET PO SCH (09:00)
[2020-10-12] MEDS: CLOPIDOGREL 75 MG TABLET PO SCH (09:00)
[2020-10-12] MEDS: MEGESTROL 40 MG TABLET PO SCH ×2 (09:00→20:56)
[2020-10-12] MEDS: CITALOPRAM 20 MG TABLET PO SCH (09:00)
[2020-10-12] MEDS: PANTOPRAZOLE 40 MG TABLET PO SCH (09:00)
[2020-10-12] MEDS: BUDESONIDE/FORMOTEROL 160-4.5 INHALER 6 GM INH SCH ×2 (09:01→20:57)
[2020-10-12] MEDS: DEXTROMETHORPHAN ER 6 MG/ML 90 ML/BOTTLE PO PRN ×2 (09:04→20:57)
[2020-10-12] MEDS: ACETAMINOPHEN 325 MG TABLET PO PRN (13:46)
[2020-10-12] MEDS: POLYETHYLENE GLYCOL POWDER 17 GM PACK PO SCH (20:57)
[2020-10-13] MEDS: methylPREDNISolone SOD SUC 40 MG/1 ML VIAL IV SCH ×2 (01:53→09:04)
[2020-10-13] MEDS: HYDROmorphone 2 MG/1 ML VIAL IV PRN ×2 (01:54→10:56)
[2020-10-13] MEDS: ALBUTEROL/IPRATROPIUM 3 ML NEB RESP TX SCH ×2 (02:22→07:50)
[2020-10-13] MEDS: LEVOTHYROXINE 75 MCG TABLET PO SCH (05:38)
[2020-10-13] MEDS: MORPHINE 4 MG/1 ML VIAL IV PRN (06:39)
[2020-10-13] MEDS: oxyCODONE ER 20 MG TABLET PO SCH (09:02)
[2020-10-13] MEDS: CLOPIDOGREL 75 MG TABLET PO SCH (09:03)
[2020-10-13] MEDS: PANTOPRAZOLE 40 MG TABLET PO SCH (09:03)
[2020-10-13] MEDS: FLUDROCORTISONE 0.1 MG TABLET PO SCH (09:03)
[2020-10-13] MEDS: MEGESTROL 40 MG TABLET PO SCH (09:03)
[2020-10-13] MEDS: CITALOPRAM 20 MG TABLET PO SCH (09:04)
[2020-10-13] MEDS: ENOXAPARIN 40 MG/0.4 ML SYRINGE SUBCUT SCH (09:04)
[2020-10-13] MEDS: BUDESONIDE/FORMOTEROL 160-4.5 INHALER 6 GM INH SCH (09:05)
[2020-10-13 12:23] VITALS: BP 165/76
== END 2020-10-13 12:06 | disposition home health service (06) | DRG 190 ==
LOC: EDUNIT# → EDBD → N.EDINP 18:36 → N.ED 18:36 → SUATTDRO 21:47 → N.EDINP 23:35 → N.4E 23:43
PROVIDERS: ADMIT Internal Medicine; ATTEND Internal Medicine